=== PATIENT | female | born 1945 | race Caucasian/White ===

== ENCOUNTER 2018-05-23 03:55 | Emergency (ER) | payer MEDICARE ==
[2018-05-23] MEDS ORDERED: Ketorolac INJ* 30 MG/ML 1 ML VIAL IV PUSH ONE (04:04)
[2018-05-23] MEDS ORDERED: diPHENhydraMINE PO* 25 MG PO ONE (04:04)
[2018-05-23] MEDS ORDERED: Metoclopramide IV* 5 MG/ML 2 ML VIAL IV ONE (04:04)
--- OUTSIDE RECORDS SUMMARY | 2018-05-23 04:10 | XMS REPORT ---
:1945 External Reference #:[id number] Author Organization [facility] Address [address] [place] [address] Phone [phone] Care Team Providers Name Role Phone Sravanthi Oconnor M.D. 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 Primary Care Physician Unavailable Payers Type Date Identification Numbers Payment Provider Subscriber Commercial Effective: Policy Number: Medicare Blue Ppo Lauren Martinez Yvette 2016 [id number] Group Number: [id number] [address] [address] PayID: [id number] [place] [address] Problems Date Description Provider Status Onset: 04/26/2018 Cough Kenneth Flores M.D. Active Onset: 04/26/2018 Malaise and fatigue Kenneth Flores M.D. Active Onset: 11/16/2017 Impaired fasting glycaemia Sravanthi Oconnor M.D. Active Onset: 08/17/2017 Mixed urinary incontinence Sravanthi Oconnor M.D. Active Onset: 08/17/2017 Gastroesophageal reflux disease Sravanthi Oconnor M.D. Active Onset: 08/17/2017 Essential hypertension Sravanthi Oconnor M.D. Active Onset: 08/17/2017 Personal history of primary malignant Sravanthi Oconnor M.D. Active neoplasm of breast Family History Date Family Member(s) Problem(s) Comments Father due to Stomach () - brain Cancer cancer Onset: (age 88 Mother Stroke Years) Mother due to Stroke () Mother Hip Fracture First Son Hypertension First Son Seizure Second Son Diabetes Mellitus, II First Sister Lung Cancer First Sister Chronic Obstructive Pulmonary Disease (COPD) First Sister Deaf Second Sister Heart Disease Third Sister Heart Disease Social History Type Date Description Comments Marital Status Legal Status: 2017 Lives With Alone Diet Healthy, Well Balanced Cigarette Use Former Cigarette Smoker >50 years ago ETOH Use Occasional 1x week Smoking Patient is a former smoker Exercise Type/Frequency Exercises regularly Allergies, Adverse Reactions, Alerts Date Description Reaction Status Severity Comments 08/17/2017 NKDA active Medications Medication Date Status Form Strength Qnty SIG Indications Ordering Provider Azithromycin 04/26/ Active Tablets 250mg 6tabs take 2 Kenneth F. 2018 tablets Shallish, by mouth M.D. on day 1 then 1 tablet on days 2 through 5 Aspirin / Active Chewtabs 81mg 1 po qd Unknown Childrens 0000 Paroxetine HCL / Active Tablets 20mg 90tabs 1 by Sravanthi 0000 mouth [place], every day M.D. Nadolol / Active Tablets 20mg 1 by Unknown 0000 mouth every day Ipratropium / Active Solution 0.03% 1 spray Unknown [place] 0000 each nostril qd prn Omeprazole / Active Capsules 20mg [address] mouth every day Triamterene/Hyd / Active Tablets 37.5-25mg 1 by Unknown rochlorothiazid 0000 mouth e every day Amoxicillin/Cla 09/08/ Hx Tablets 875-125mg 30tabs 1 by J01.00 Sebastián grande 2017 - mouth Seda Potassium 11/16/ twice a MD 2017 Vital Signs Date Vital Result Comment 04/26/2018 BP Systolic 130 mmHg BP Diastolic 70 mmHg Heart Rate 78 /min Body Temperature 97.7 F Respiratory Rate 20 /min Weight 193.00 lb 11/16/2017 BP Systolic 120 mmHg BP Diastolic 74 mmHg Heart Rate 80 /min Body Temperature 98.1 F Respiratory Rate 18 /min Height 64.5 inches 5'4.50" Weight 194.00 lb BMI (Body Mass Index) 32.8 kg/m2 09/08/2017 BP Systolic 124 mmHg BP Diastolic 70 mmHg Heart Rate 60 /min Body Temperature 97.0 F Respiratory Rate 16 /min Height 64.5 inches 5'4.50" Weight 195.00 lb BMI (Body Mass Index) 33.0 kg/m2 08/17/2017 BP Systolic 140 mmHg BP Diastolic 70 mmHg Heart Rate 64 /min Body Temperature 98.4 F Respiratory Rate 16 /min Height 64.5 inches 5'4.50" Weight 192.00 lb BMI (Body Mass Index) 32.4 kg/m2 Results Test Date Test Result H/L Range Note FSH, Serum 11/02/2017 FSH 49.5 mIU/mL 1, 2 Laboratory test finding 11/02/2017 Luteinizing Hormone(LH), 19.4 mIU/mL 1, 3 S Estradiol <5.0 pg/mL 1, 4 Comprehensive Metabolic Prof 11/02/2017 Sodium 136 mEq/L 134-149 Potassium 3.7 mEq/L 3.6-5.5 Chloride 95 mEq/L 94-112 Carbon Dioxide 29 mEq/L 21-32 Glucose 137 mg/dL High 70-105 5 BUN 17 mg/dL 6-26 Creatinine 0.8 mg/dL 0.6-1.4 BUN/Creat Ratio 21.3 CALC 8.0-36.0 Calcium 9.2 mg/dL 8.6-10.2 Total Protein 6.7 g/dL 6.4-8.3 Albumin 4.4 g/dL 3.8-5.5 Globulin 2.3 g/dL 2.0-4.8 A/G Ratio 1.9 CALC 0.6-2.3 Alk. Phosphatase 75 U/L 30-110 Alt (SGPT) 32 U/L 7-35 Ast (Sgot) 23 U/L 5-34 Total Bilirubin 0.7 mg/dL 0.2-1.3 GFR Non- >60 ml/min/1.73m^ >=60 GFR >60 ml/min/1.73m^ >=60 Lipid Profile 11/02/2017 Cholesterol 204 mg/dL High 120-200 Triglycerides 124 mg/dL 30-200 HDL Cholesterol 46 mg/dL 30-85 LDL (Calculated) 133 CALC High 0-129 VLDL Cholesterol 25 mg/dL 0-50 HDL Risk Factor 4.4 CALC 0.0-4.4 Laboratory test finding 11/02/2017 Free T4 1.01 ng/dL 0.75-1.54 TSH 3.11 mIU/L 0.50-6.00 CBC Electronic Fma 11/02/2017 WBC 4.5 x10^3/UL 4.0-10.0 RBC 4.87 x10^6/UL 3.93-6.00 HGB 14.3 g/dL 12.0-17.0 HCT 41 % 35-50 MCV 84.8 fL 80.0-95.0 MCH 29.4 pg 25.6-32.2 MCHC 34.6 g/dL 32.2-36.0 RDW-CV 13.7 % 11.6-14.4 PLT 171 x10^3/UL 163-400 MPV 12.3 fL 9.4-12.4 Breann# 2.91 x10^3/UL 1.56-6.13 Lymph# 1.13 x10^3/UL Low 1.18-3.74 Cedar# 0.31 x10^3/UL 0.24-0.82 Eos # 0.1 x10^3/UL 0.0-0.5 Baso # 0.04 x10^3/UL 0.01-0.08 Breann% 64.4 % 34.0-70.0 Lymph % 25.0 % 20.0-52.0 Cedar% 6.9 % 5.0-12.0 Eos% 2.4 % 0.7-7.0 Baso% 0.9 % 0.1-1.2 1 1 sst 2 Adult Female: Follicular phase 3.5 - 12.5 Ovulation phase 4.7 - 21.5 Luteal phase 1.7 - 7.7 Postmenopausal 25.8 - 134.8 3 Adult Female: Follicular phase 2.4 - 12.6 Ovulation phase 14.0 - 95.6 Luteal phase 1.0 - 11.4 Postmenopausal 7.7 - 58.5 4 Adult Female: Follicular phase 12.5 - 166.0 Ovulation phase 85.8 - 498.0 Luteal phase 43.8 - 211.0 Postmenopausal <6.0 - 54.7 1st trimester 215.0 - >4300.0 Girls (1-10 years) 6.0 - 27.0 Andria ECLIA methodology 5 RESULTS VERIFIED BY REPEAT ANALYSIS Procedures Date CPT Code Description Status Comment 04/25/2017 Mammogram Completed 07/26/2013 Colonoscopy Completed [facility] Encounters Type Date Location Provider CPT E/M Dx Office Visit 11/16/2017 11:20a [facility] Sravanthi Oconnor M.D. 75751 I10 N95.1 Z85.3 K21.9 R73.01 Office Visit 09/08/2017 4:10p Main [place] Sebast[place]án [place] [address] J01.00 Office Visit 08/17/2017 2:20p [facility] Office Sravanthi Oconnor M.D. 56853 Z00.00 N95.1 Z85.3 I10 K21.9 H91.93 N39.46 Plan of Care Future Appointment(s):05/11/2018 9:20 am - Sravanthi Oconnor M.D. at [facility] Llyitc3604/26/2018 - Kenneth Flores M.D.R53.83 Other fatigueNew Labs:CBC Electronic-ALL Lab CompaniComp Metabolic-ALL Lab CompaniFree T4 (Fma/[facility]) TSH (Fma/[facility])Comments:Patient states she has had several weeks of unusual fatigue, denies chest pain on exercise, check lab work today and she will followup with Dr. Luna CoughComments:start azithromycin for sinusitis ,and bronchitis , await lab work patient would like to get her appointment for chest xray and mammogramAllNew Medication:Azithromycin 250 mg
--- OUTSIDE RECORDS SUMMARY | 2018-05-23 04:10 | XMS REPORT ---
:1945 External Reference #:[id number] Author Organization [facility] Address [address] [place] [address] Phone [phone] Care Team Providers Name Role Phone Sravanthi Oconnor M.D. 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 Primary Care Physician Unavailable Payers Type Date Identification Numbers Payment Provider Subscriber Commercial Effective: Policy Number: Medicare Blue Ppo Lauren Martinez Yvette 2016 [id number] Group Number: [id number] [address] [address] PayID: [id number] [place] [address] Problems Date Description Provider Status Onset: 08/17/2017 Personal history of primary Sravanthi Oconnor M.D. Active malignant neoplasm of breast Onset: 08/17/2017 Essential hypertension Sravanthi Oconnor M.D. Active Onset: 08/17/2017 Gastroesophageal reflux disease Sravanthi Oconnor M.D. Active Onset: 08/17/2017 Mixed urinary incontinence Sravanthi Oconnor M.D. Active Onset: 11/16/2017 Impaired fasting glycaemia Sravanthi Oconnor M.D. Active Onset: 04/26/2018 Malaise and fatigue Kenneth Flores M.D. Resolved Resolved: 05/04/2018 Onset: 04/26/2018 Cough Kenneth Flores M.D. Resolved Resolved: 05/04/2018 Family History Date Family Member(s) Problem(s) Comments [...] Form Strength Qnty SIG Indications Ordering Provider Aspirin / Active Chewtabs 81mg 1 po qd Unknown Childrens 0000 Paroxetine HCL / Active Tablets 20mg 90tabs 1 by Sravanthi 0000 mouth [place], every day M.D. Nadolol / Active Tablets 20mg 90tabs 1 by Sravanthi 0000 mouth [place], every day M.D. Ipratropium / Active Solution 0.03% 30ml 1 spray Sravanthi [place] 0000 each [place], nostril M.D. every day as needed Omeprazole / Active Capsules 20mg [address] mouth every day Triamterene/Hyd / Active Tablets 37.5-25mg 90tabs 1 by Sravanthi rochlorothiazid 0000 mouth [place], e every day M.D. Azithromycin 04/26/ Hx Tablets 250mg 6tabs take 2 Kenneth F. 2017 - tablets Shallish, 05/04/ by mouth M.D. 2017 on day 1 then 1 tablet on days 2 through 5 Amoxicillin/Cla 09/08/ Hx Tablets 875-125mg 30tabs 1 by J01.00 Sebastián grande 2017 - mouth Seda Potassium 11/16/ twice a MD 2017 Vital Signs Date Vital Result Comment 05/04/2018 BP Systolic 128 mmHg BP Diastolic 70 mmHg Heart Rate 70 /min Body Temperature 97.2 F Respiratory Rate 20 /min Weight 192.00 lb 04/26/2018 BP Systolic 130 mmHg BP Diastolic [...] Test Date Test Result H/L Range Note Comprehensive Metabolic Prof 04/26/2018 Sodium 138 mEq/L 134-149 Potassium 3.7 mEq/L 3.6-5.5 Chloride 96 mEq/L 94-112 Carbon Dioxide 31 mEq/L 21-32 Glucose 71 mg/dL 70-105 BUN 13 mg/dL 6-26 Creatinine 0.9 mg/dL 0.6-1.4 BUN/Creat Ratio 14.4 CALC 8.0-36.0 Calcium 10.0 mg/dL 8.6-10.2 Total Protein 6.9 g/dL 6.4-8.3 Albumin 4.7 g/dL 3.8-5.5 Globulin 2.2 g/dL 2.0-4.8 A/G Ratio 2.1 CALC 0.6-2.3 Alk. Phosphatase 79 U/L 30-110 Alt (SGPT) 31 U/L 7-35 Ast (Sgot) 26 U/L 5-34 Total Bilirubin 0.8 mg/dL 0.2-1.3 GFR Non- >60 ml/min/1.73m^ >=60 GFR >60 ml/min/1.73m^ >=60 Laboratory test finding 04/26/2018 Free T4 1.44 ng/dL 0.75-1.54 TSH 3.01 mIU/L 0.50-6.00 CBC Electronic Fma 04/26/2018 WBC 5.9 x10^3/UL 4.0-10.0 RBC 4.95 x10^6/UL 3.93-6.00 HGB 14.4 g/dL 12.0-17.0 HCT 43 % 35-50 MCV 86.3 fL 80.0-95.0 MCH 29.1 pg 25.6-32.2 MCHC 33.7 g/dL 32.2-36.0 RDW-CV 13.9 % 11.6-14.4 PLT 236 x10^3/UL 163-400 MPV 12.9 fL High 9.4-12.4 Breann# 3.60 x10^3/UL 1.56-6.13 Lymph# 1.24 x10^3/UL 1.18-3.74 [place]# 0.63 x10^3/UL 0.24-0.82 Eos # 0.3 x10^3/UL 0.0-0.5 Baso # 0.05 x10^3/UL 0.01-0.08 Breann% 61.3 % 34.0-70.0 Lymph % 21.2 % 20.0-52.0 [place]% 10.8 % 5.0-12.0 Eos% 5.1 % 0.7-7.0 Baso% 0.9 % 0.1-1.2 FSH, Serum 11/02/2017 FSH 49.5 mIU/mL 1, 2 Laboratory test finding 11/02/2017 Luteinizing Hormone(LH), S 19.4 mIU/mL 1, 3 Estradiol <5.0 pg/mL 1, 4 Comprehensive Metabolic [...] x10^3/UL 1.56-6.13 Lymph# 1.13 x10^3/UL Low 1.18-3.74 [place]# 0.31 x10^3/UL 0.24-0.82 Eos # 0.1 x10^3/UL 0.0-0.5 Baso # 0.04 x10^3/UL 0.01-0.08 Breann% 64.4 % 34.0-70.0 Lymph % 25.0 % 20.0-52.0 [place]% 6.9 % 5.0-12.0 Eos% 2.4 % 0.7-7.0 [...] Location Provider CPT E/M Dx Office Visit 04/26/2018 9:20a Main Office Kenneth Flores M.D. 58299 R53.83 R05 Office Visit 11/16/2017 11:20a [facility] Sravanthi Oconnor M.D. 83455 I10 N95.1 Z85.3 K21.9 R73.01 Office Visit 09/08/2017 4:10p Main [place] Sebast[place]án [place] [address] J01.00 Office Visit 08/17/2017 2:20p [facility] Sravanthi Ocononr M.D. 07963 Z00.00 N95.1 Z85.3 I10 K21.9 H91.93 N39.46 Plan of Care Future Appointment(s):08/23/2018 1:00 pm - Sravanthi Oconnor M.D. at [facility] Nhjcjo2305/04/2018 - Sravanthi Oconnor M.D.I10 Essential (primary) hypertensionNew Labs:CCS-Comp And Lipid (Fma)Comments:The patient will continue to monitor blood pressure and let me know the blood pressure results if there are readings persistently above 140/80. Goal blood pressure is less than 140/80. Recommend low salt/cardiac diet and routine exercise.Follow up:nqdtdjtkA58.1 Menopausal and female climacteric rqmedtW60.3 Personal history of malignant neoplasm of breastComments:gets routine mammogram due April has [id number] Impaired fasting glucoseNew Labs:CBC Electronic-ALL Lab CompaniCCS-Comp And Lipid (Fma)Hemoglobin [id number]:Counseled on heart healthy diet and exercise; limiting carbs and portion control, at least 30 minutes of physical activity daily; consider Mediterranean diet as a guide for healthy eating ; A1c> 6.5is diagnostic of diabetesAllComments:~B_~U_Medication Management~b_~u_ Patient Understands medications she's taking? Yes No Are there Barriers to Adherence? Yes No Has the patient been asked about herbal supplements and therapies, and OTC meds? Yes No
--- NOTE | 2018-05-23 04:26 | ED ---
Headache - HPI Summary HPI Summary: A 72 y/o F presents to ED with c/o R temporal migraine onset 2129 yesterday. Migraine is painful and throbbing. Pt has been having sinus issues for 6 weeks. She was given ABX by Dr. Oconnor, PCP, which alleviated her sx at that time. Her sx have returned. Associated: maxillary sinus discomfort for 4-5 days, teeth pain, L eye flashes described as "zig zags" and colorful aura, mild neck pain, mildly unsteady gait. PMHx: migraines. Flu shot and PNA shot two days ago. Allergies discussed. - History Of Current Complaint Chief Complaint: EDHeadache Stated Complaint: GENERAL Time Seen by Provider: 05/23/18 04:24 Hx Obtained From: Patient Onset/Duration: Started hours ago, Still Present Initially Headache Was: Moderate Currently Pain Is: Current Pain Scale(0-10)= - 5/10, Moderate Timing: Constant Character: Migraine Location of Headache: Temporal - Right Associated Signs And Symptoms: Sinus Pressure - sinus discomfort, Neck Pain - mild, Visual Changes, Other (Noted In Comments) - pos: teeth pain, mildly unsteady gait - Allergies/Home Medications Allergies/Adverse Reactions: Allergies Allergy/AdvReac Type Severity Reaction Status Date / Time Penicillins Allergy Hives Verified 05/23/18 04:25 PMH/Surg Hx/FS Hx/Imm Hx Previously Healthy: No Endocrine/Hematology History: Denies: Hx Diabetes Cardiovascular History: Reports: Hx Hypertension - CONTROLLED Denies: Hx Congestive Heart Failure GI History: Comment Only: Other GI Disorders - TUMMY TUCK FOR BREAST RECONSTRUCTION History: Denies: Hx Renal Disease - Cancer History Cancer Type, Location and Year: RT BREAST CA Hx Chemotherapy: No Hx Radiation Therapy: No - Surgical History Surgery Procedure, Year, and Place: RT SIDED BREAST SURGERY/TUMMY TUCK Infectious Disease History: No Infectious Disease History: Denies: Traveled Outside the [place] in Last 30 Days - Family History Known Family History: Negative: Other - neg Breast CA - Social History Occupation: Retired Lives: Alone Alcohol Use: Rare Substance Use Type: Reports: None Smoking Status (MU): Never Smoked Tobacco Review of Systems Negative: Fever Positive: Other - pos: flashes "zig zags" and colorful aura Positive: Dental Pain, Other - pos: maxillary sinus discomfort Positive: Other - pos: mild neck pain Neurological: Other - pos: mildly unsteady gait Positive: Headache All Other Systems Reviewed And Are Negative: Yes Physical Exam - Summary Physical Exam Summary: Appearance: Well appearing, no pain distress Skin: warm, dry, reflects adequate perfusion Head/face: normal Eyes: EOMI, ARISTEO ENT: mucous membranes moist, maxillary sinus discomfort Neck: supple, non-tender Respiratory: CTA, breath sounds present Cardiovascular: RRR, pulses symmetrical Abdomen: non-tender, soft Bowel Sounds: present Musculoskeletal: normal, strength/ROM intact Neuro: normal, sensory motor intact, A&Ox3, cranial nerves are normal Triage Information Reviewed: Yes Vital Signs On Initial Exam: Initial Vitals Temp Pulse Resp BP Pulse Ox 98.7 F 84 18 158/80 96 05/23/18 03:57 05/23/18 03:57 05/23/18 03:57 05/23/18 03:57 05/23/18 03:57 Vital Signs Reviewed: Yes Diagnostics - Vital Signs Vital Signs Temp Pulse Resp BP Pulse Ox 05/23/18 03:57 98.7 F 84 18 158/80 96 - Laboratory Lab Statement: Any lab studies that have been ordered have been reviewed, and results considered in the medical decision making process. - CT Sinus CT CT Interpretation Completed By: Radiologist Summary of CT Findings: IMPRESSION: 1. No evidence of acute facial fracture. 2. 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 ED provider has reviewed this report. Re-Evaluation - Re-Evaluation 1 Re-Evaluation Time: 05:31 Comment: Discussing lab and CT results with pt. Headache has resolved. Headache Course/Dx - Course Course Of Treatment: Patient with headache syndrome that is untreated with medication. She had complained of sinus discomfort however CT of the sinuses is normal. She had no fever or head injury. Treated symptomatically here with total relief. Discharged to follow-up with her primary care physician. - Diagnoses Differential Diagnosis/HQI/PQRI: Migraine, Sinus Headache, Tension Headache, Viral Syndrome Provider Diagnoses: Migraine headache Discharge - Sign-Out/Discharge Documenting (check all that apply): Patient Departure - Discharge Plan Condition: Improved Disposition: HOME Prescriptions: Promethazine TAB* [Phenergan Tab*] 25 mg PO Q6H PRN #20 tab PRN Reason: headache/nausea Patient Education Materials: Migraine Headache (ED) Referrals: Sravanthi Oconnor MD [Primary Care Provider] - Additional Instructions: Use a decongestant such as Mucinex or Mucinex D if you have drainage. Drink plenty of fluids. Ibuprofen, Benadryl can help the prescribed medication if headache is more serious. Also stay well-hydrated and some caffeine may help as well. Call your doctor first thing this morning to schedule prompt follow- up. - Billing Disposition and Condition Condition: IMPROVED Disposition: Home - Attestation Statements Document Initiated by Scribe: Yes Documenting Scribe: Dony Vera Provider For Whom Mary is Documenting (Include Credential): Dr. Al Gómez MD Scribe Attestation: I, Dony Vera scribed for Dr. Al Gómez MD on 05/23/18 at 0611. Scribe Documentation Reviewed: Yes Provider Attestation: The documentation as recorded by the Dony montana accurately reflects the service I personally performed and the decisions made by me, Dr. Al Gómez MD
--- NOTE | 2018-05-23 05:38 | RAD ---
EXAM: CT Maxillofacial Without Intravenous Contrast, Sinus EXAM DATE/TIME: 05/23/2018 4:45 AM CLINICAL HISTORY: 72 years old, female; Pain; Headache; Additional info: Sinus pain, headache TECHNIQUE: CT Maxillofacial without intravenous contrast. Focus on the sinuses. All CT scans at this facility use at least one of these dose optimization techniques: automated exposure control; mA and/or kV adjustment per patient size (includes targeted exams where dose is matched to clinical indication); or iterative reconstruction. Coronal and sagittal reformatted images were created and reviewed. COMPARISON: No relevant prior studies available. FINDINGS: Sinuses: Unremarkable. No air-fluid levels. 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 Soft tissues: Unremarkable. IMPRESSION: 1. No evidence of acute facial fracture. 2. 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 To contact [facility] with a general question: [facility] - [phone] For direct physician to physician contact: Physician Hotline - [phone] [facility] ([facility] Facility ID #[id number])
[2018-05-23 05:51] VITALS: BP 154/72
== END 2018-05-23 05:50 | disposition home or self-care (01) ==
LOC: ED 03:55
DX: G43.909 Migraine, unspecified, not intractable, without status migrainosus (principal); I10 Essential (primary) hypertension; Z85.3 Personal history of malignant neoplasm of breast
CPT/HCPCS: 70486; 96374; 96375; 99282; A9270-GY; J1885; J2765

== ENCOUNTER 2018-09-27 15:05 | Observation (INO) | payer MEDICARE ==
[2018-09-27] MEDS ORDERED: NS 0.9% 1000 ML** 1,000 ML IV ONE (15:42)
--- NOTE | 2018-09-27 15:46 | ED ---
Neurological HPI - HPI Summary HPI Summary: This pt is a 73 y/o female presenting to [facility] c/o headache, slurred speech, speech aphasia today. Son, Raymon, reports today at around 13:50 his spoke with the pt on the phone and pt was having difficulty remembering words and only coming up with a few words at a time. Additionally son states pt's speech was a little slurred. Son left work and arrived at pt's place and states pt seemed ok then but not normal. Son denies pt has slurred speech right now. Pt denies weakness, numbness, tingling. Pt reports she has had high blood pressure over 200 systolic for the past 3 weeks intermittently. Pt was at [facility] on 09/13 for migraine headache and 09/24 for elevated blood pressure. She notes she is on Nadolol and hydrochlorothiazide. Pt states she missed her dose of 25 mg hydrochlorothiazide at 15:00 today. Hydrochlorothiazide has recently been increased. PMHx: HTN, migraine headache, IBS. - History of Current Complaint Chief Complaint: EDHeadache Stated Complaint: PER PT DOCTOR SAID TO REPORT HERE, POSSIBLE STROKE Time Seen by Provider: 09/27/18 15:33 Hx Obtained From: Patient, Family/[employer] - SonRaymon Onset/Duration: Started hours ago - at 13:50, Resolved Timing: Sudden Onset Onset Severity: Moderate Pain Intensity: 5 Pain Scale Used: 0-10 Numeric Character: Impaired Speech, Other: - headache, slurred speech Aggravating: Nothing Alleviating: Nothing Associated Signs and Symptoms: Positive: Headache, Impaired Speech. Negative: Pain, Fever, Chest Pain, Shortness of Breath - Allergy/Home Medications Allergies/Adverse Reactions: Allergies Allergy/AdvReac Type Severity Reaction Status Date / Time peanut Allergy Swelling Verified 09/13/18 17:58 Of Face,Lips,& Throat Penicillins Allergy Hives Verified 05/23/18 04:25 Home Medications: Home Medications Aspirin 1 tab PO DAILY 09/27/18 [History Confirmed 09/27/18] Cholecalciferol TAB* [Vitamin D TAB*] 2,000 units PO DAILY 09/27/18 [History Confirmed 09/27/18] Hydrochlorothiazide TAB* [Hydrodiuril TAB*] 25 mg PO DAILY 09/27/18 [History Confirmed 09/27/18] Omeprazole CAP (NF) [Prilosec CAP* 20 MG] 20 mg PO DAILY 09/27/18 [History Confirmed 09/27/18] Oxybutynin XL TAB* [Ditropan XL TAB*] 5 mg PO DAILY 09/27/18 [History Confirmed 09/27/18] PARoxetine HCL TAB* [Paxil TAB*] 20 mg PO DAILY 09/27/18 [History Confirmed 12/11] PMH/Surg Hx/FS Hx/Imm Hx Endocrine/Hematology History: Denies: Hx Diabetes Cardiovascular History: Reports: Hx Hypertension - CONTROLLED Denies: Hx Congestive Heart Failure GI History: Comment Only: Other GI Disorders - TUMMY TUCK FOR BREAST RECONSTRUCTION History: Denies: Hx Renal Disease Sensory History: Denies: Hx Eye Prosthesis, Hx Legally Blind, Hx Deafness Opthamlomology History: Denies: Hx Eye Prosthesis, Hx Legally Blind Neurological History: Reports: Hx Migraine Denies: Hx Dementia Psychiatric History: Denies: Hx Autism - Cancer History Cancer Type, Location and Year: RT BREAST CA Hx Chemotherapy: No Hx Radiation Therapy: No - Surgical History Surgery Procedure, Year, and Place: RT SIDED BREAST SURGERY/TUMMY TUCK - Immunization History Date of Tetanus Vaccine: utd Date of Influenza Vaccine: fall 2017 Infectious Disease History: No Infectious Disease History: Denies: Traveled Outside the [place] in Last 30 Days - Family History Known Family History: Negative: Other - neg Breast CA - Social History Alcohol Use: Occasionally Substance Use Type: Reports: None Smoking Status (MU): Former Smoker Review of Systems Negative: Fever, Chills Cardiovascular: Other - POS: elevated blood pressure Negative: Chest Pain Negative: Shortness Of Breath Neurological: Other - POS: slurred speech, aphasia Positive: Headache. Negative: Weakness, Paresthesia, Numbness All Other Systems Reviewed And Are Negative: Yes Physical Exam - Summary Physical Exam Summary: VITAL SIGNS: Reviewed. GENERAL: Patient is a well-developed and nourished female who is lying comfortable in the stretcher. Patient is not in any acute respiratory distress. HEAD AND FACE: Normocephalic EYES: PERRLA, EOMI x 2. EARS: Hearing grossly intact. MOUTH: Oropharynx within normal limits. NECK: Supple, trachea is midline, no adenopathy, no JVD, no carotid bruit. CHEST: Symmetric, no tenderness at palpation LUNGS: Clear to auscultation bilaterally. No wheezing or crackles. CVS: Regular rate and rhythm, S1 and S2 present, no murmurs or gallops appreciated. ABDOMEN: Soft, non-tender. Bowel sounds are normal. No abdominal abnormal pulsations. EXTREMITIES: Full ROM in all major joints, no edema, no cyanosis or clubbing. NEURO: Alert and oriented x 3. No acute neurological deficits. Speech is normal and follows commands. SKIN: Dry and warm GCS: 15 Triage Information Reviewed: Yes Vital Signs On Initial Exam: Initial Vitals Temp Pulse Resp BP Pulse Ox 97.7 F 62 15 178/84 98 09/27/18 15:17 09/27/18 15:17 09/27/18 15:17 09/27/18 15:17 09/27/18 15:17 Vital Signs Reviewed: Yes Diagnostics - Vital Signs Vital Signs Temp Pulse Resp BP Pulse Ox 09/27/18 15:17 97.7 F 62 15 178/84 98 - Laboratory Result Diagrams: 09/27/18 16:00 09/27/18 15:59 Lab Statement: Any lab studies that have been ordered have been reviewed, and results considered in the medical decision making process. - Radiology Chest XR Radiology Interpretation Completed By: Radiologist Summary of Radiographic Findings: IMPRESSION: 1. The lungs are clear. 2. Mild widening of the mediastinum likely due to portable technique although nonspecific. When the patient is clinically able recommend PA and lateral chest films. Dr. Mcfadden has reviewed this report. - CT Brain CT CT Interpretation Completed By: Radiologist Summary of CT Findings: IMPRESSION: 1. No evidence for gross acute infarct, mass effect or hemorrhage. 2. Findings suggestive of mild chronic small vessel ischemic changes. Dr. Mcfadden has reviewed this report. - EKG 16:04 Cardiac Rate: NL - at 65 bpm EKG Rhythm: Sinus Rhythm EKG Comparison: No Significant Change - Similar to prior EKG on 09/24/18. Summary of EKG Findings: No ST elevations. 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: Both Correctly Best Gaze (Only Horizontal Eye Movement): Normal Visual Field Testing: No Visual Loss Facial Paresis-Pt to Smile & Close Eyes or Grimace Symmetry: Normal/Symmetrical Motor Function - Right Arm: No Drift-Holds 10 Seconds Motor Function - Left Arm: No Drift-Holds 10 Seconds Motor Function - Right Leg: No Drift-Holds 10 Seconds Motor Function - Left Leg: No Drift-Holds 10 Seconds Limb Ataxia-Must be out of Proportion to Weakness Present: Absent Sensory (Use Pinprick to Test Arms/Legs/Trunk/Face): Normal Best Language (Describe Picture, Name Items): No Aphasia Dysarthria (Read Several Words): Normal Extinction and Inattention: No Abnormality Total Score: 0 Re-Evaluation - Re-Evaluation First Eval Re-Evaluation Time: 15:53 Comment: Dr. Lares, neurologist, at bedside. Course/Dx - Course Course Of Treatment: Code Adam at 15:40. Brain CT ordered at 15:42. Patient to CT at 15:43. Patient returned from CT at 15:52. Dr. Lares, neurologist, at bedside at 15:53. Dr. Lares reports pt is not a candidate for TPA because NIH is 0. At 16:03 Dr Palma, radiologist, reports negative brain CT. At 16:10 Dr. Lares, neurologist, recommends admission for the pt. Assessment/Plan: This patient is a 73-year-old female who presents to the emergency department with a chief complaint of having an episode of slurred speech, speech aphasia, confusion around 1:50 PM today. The patient also was having a headache and increased blood pressure. NIH score is equal to 0. Head CT impression: Negative for an acute pathology. After assessment from Dr. Lares , from neurology, he recommends no TPA since the patients NIH score right now is equal to 0. However, he recommends for the patient to be admitted to the hospitalist for further workup of TIA versus CVA, and hypertensive encephalopathy. In the ED course the patient was given hydralazine for the increased blood pressure. I discussed my physical exam and findings with Dr. Wilson, from the hospitalist services, who accepted patient for admission. - Diagnoses Provider Diagnoses: Hypertensive encephalopathy, TIA (transient ischemic attack), Headache During the Visit The Following Alert/Code Occurred: Code Adam - at 15:40 - Physician Notifications Discussed Care Of Patient With: Justo Palma Time Discussed With Above Provider: 16:03 Instructed by Provider To: Other - Dr. Palma, radiologist, reports negative brain CT. [17:26] Discussed the case with Dr. Wilson, hospitalist, who accepted the pt for admission. - Critical Care Time Critical Care Time: 75-104 min Discharge - Sign-Out/Discharge Documenting (check all that apply): Patient Departure - Admit to [facility] Patient Received Moderate/Deep Sedation with Procedure: No - Discharge Plan Condition: Stable Disposition: ADMITTED TO [facility] - Billing Disposition and Condition Condition: STABLE Disposition: Admitted to [facility] - Attestation Statements Document Initiated by Scribe: Yes Documenting Scribe: Esperanza Lindo Provider For Whom Scribe is Documenting (Include Credential): Ryan Mcfadden MD Scribe Attestation: Esperanza Jauregui, scribed for Ryan Mcfadden MD on 09/28/18 at 1014. Scribe Documentation Reviewed: Yes Provider Attestation: The documentation as recorded by the Esperanza montana accurately reflects the service I personally performed and the decisions made by mi, Ryan Mcfadden MD Status of Scribe Document: Viewed
[2018-09-27 16:06] LABS: Hematocrit 42 % (35-47); Hemoglobin 14.6 g/dl (12.0-16.0); Mean Corpuscular HGB Conc 35 g/dl (31-36); Mean Corpuscular Hemoglobin 30 pg (27-31); Mean Corpuscular Volume 85 fL (80-97); Mean Platelet Volume 10.3 fL (7.4-10.4); Platelet Count 192 10^3/ul (150-450); Red Blood Count 4.94 10^6/ul (4.00-5.40); Red Cell Distribution Width 14 % (10.5-15); White Blood Count 6.9 10^3/ul (3.5-10.8)
[2018-09-27 16:14] LABS: Activated Partial Thrombo Time 30.3 seconds (26.0-36.3); INR 0.92 (0.77-1.02)
[2018-09-27 16:24] LABS: Albumin 4.5 g/dL (3.2-5.2); Albumin/Globulin Ratio 1.6 (1-3); BUN/Creatinine Ratio 21.5 (8-20); Calcium 9.3 mg/dL (8.6-10.3); EGFR African American 71.3 (>60); EGFR Non-African American 58.9 (>60); Globulin 2.8 g/dL (2-4); HDL Cholesterol 42.4 mg/dL; Total Bilirubin 0.7 mg/dL (0.2-1.0); Total Protein 7.3 g/dL (6.4-8.9)
[2018-09-27 16:24] LABS: Urine Appearance Clear; Urine Bilirubin Negative (Negative); Urine Blood Negative (Negative); Urine Color Straw; Urine Glucose Negative (Negative); Urine Ketones Negative (Negative); Urine Nitrite Negative (Negative); Urine Protein Negative (Negative); Urine Specific Gravity 1.005 (1.010-1.030); Urine Urobilinogen Negative (Negative)
[2018-09-27 16:28] LABS: ABS Basophils 0 10^3/ul (0-0.2); ABS Eosinophils 0.1 10^3/ul (0-0.6); ABS Lymphocytes 1.3 10^3/ul (1.0-4.8); ABS Monocytes 0.6 10^3/ul (0-0.8); ABS Neutrophils 4.8 10^3/ul (1.5-7.7); ABS Nucleated RBC 0 10^3/ul; Eosinophil % 2.1 %; Lymphocyte % 18.8 %; Nucleated Red Blood Cells % 0.1
[2018-09-27] MEDS ORDERED: Potassium Chlor TAB* 20 MEQ TAB.ER PO ONE (17:02)
[2018-09-27] MEDS ORDERED: hydrALAZINE IV* 20 MG/ML VIAL IV SLOW PU ONE (17:02)
[2018-09-27 17:07] LABS: TSH (Thyroid Stimulating Horm) 3.41 mcIU/mL (0.34-5.60)
[2018-09-27] MEDS ORDERED: Ondansetron INJ* 2 MG/ML VIAL IV PRN (18:18)
[2018-09-27] MEDS ORDERED: hydrALAZINE IV* 20 MG/ML VIAL IV SLOW PU PRN (19:01)
[2018-09-27] MEDS ORDERED: amLODIPine TAB* 5 MG PO ONE (19:02)
[2018-09-27] MEDS: Acetaminophen TAB* 325 MG PO PRN (19:08)
[2018-09-27] MEDS: Heparin VIAL(*) 5000 UNITS/ML VIAL (FIVE THOUSAND) SUBCUT SCH (21:07)
--- NOTE | 2018-09-27 21:16 | HP ---
CC: Dr. Sravanthi Oconnor.* ADMISSION HISTORY AND PHYSICAL: DATE OF ADMISSION: 09/27/18 PRIMARY CARE PROVIDER: Dr. Sravanthi Oconnor. HEALTHCARE PROXY: Her son. CODE STATUS: Full. SOURCE OF INFORMATION: History obtained from interview with the patient and her son. RELIABILITY: Good. CHIEF COMPLAINT: Headache, slurred speech, and aphasia. HISTORY OF PRESENT ILLNESS: This is a 73-year-old female with past medical history of migraines with aura as well as hypertension. She has been to the hospital several times in the last several weeks, first time 09/13/18 with migraines, also found to have blood pressure greater than 200. Discharge followup with Dr. Oconnor, which she did the next day. Started on hydrochlorothiazide, however, returned on 09/24/18 with blood pressure greater than 220, which she checked at home. At the direction of her primary care provider, again was seen in the emergency room, at which time her hydrochlorothiazide dose was increased to 50 mg daily and she was discharged home. Since that time, she had not been feeling 100% with a dull headache daily and not a lot of "inhibition." However, today on the day of presentation , she woke up early, felt well, cleaned the house until her "head felt a little weird." She felt like she was developing a migraine. She had auras with zigzag lines; however, this was not as bad as the worst episodes of migraines with aura. She took an aspirin and went to sit down. Her aura improved, however, at this time she mistakenly sent a group message telling her friend that she thought she might need some help. This message went to a number of family members as well, which she did not intend at first. Her [id number]-vi-zik called the patient around 1:50 p.m. and on the phone the patient was having difficulty finding words with some intermittent slurred speech. The patient said she could not think straight and additionally she tried to sit down and perform a crossword puzzle, but could not write the letters correctly. The entire episode lasted about 15 minutes. The patient's son presented to her home at which time he reported she did not quite seem herself, but was not quite abnormal. She presented to the emergency room where michael fine was called. She had a presenting NIH stroke scale of 0. She continues to have headaches that she noted was dissimilar to her usual migraines and it was frontal and burning, the last one was much more severe and right-sided and throbbing. Other than aforementioned events leading up to today, she has had no other recent or intercurrent illnesses including fevers, chills, night sweats , cough, shortness of breath, nausea, vomiting, lightheadedness, loss of consciousness, near loss of consciousness, changes in her medications other than those described above, sick contacts, URI or symptoms, bleeding, or travel. PAST MEDICAL HISTORY: Includes essential hypertension; IBS in remission; migraines with aura; history of breast cancer, status post modified radical mastectomy in 1966 on the right, breast reduction in 1986. MEDICATIONS: Medication list reviewed: 1. Aspirin 1 tab daily. 2. Cholecalciferol 2000 units daily. 3. Paxil 20 mg daily. 4. Omeprazole 20 mg daily. 5. Nadolol 20 mg daily. 6. Oxybutynin XL 5 mg daily. 7. Hydrochlorothiazide 25 mg daily, however, indicated the ER recently increased it to 50 mg daily. ALLERGIES: PEANUTS and PENICILLIN. FAMILY HISTORY: CVA in her mother. SOCIAL HISTORY: Remote tobacco greater than 30 years, alcohol 1 to 3 drinks of wine per week. REVIEW OF SYSTEMS: As per HPI. PHYSICAL EXAMINATION GENERAL: Sitting up in bed, interactive, pleasant, in no apparent distress. VITAL SIGNS: In the emergency room, 192/84, heart rate is 67, respiratory rate is 17, 97% on room air, T-max is 97.7. HEENT: Oropharynx is clear. She has moist mucous membranes. Sclerae are anicteric. NECK: She has no supraclavicular or cervical lymphadenopathy. LUNGS: Clear to auscultation. HEART: She has a regular rate and rhythm. No murmurs, rubs, or gallops. ABDOMEN: Soft, nontender, nondistended. EXTREMITIES: Warm and well perfused without clubbing, cyanosis, or edema. NEURO: She is alert and oriented x3. Cranial nerves II through XII are intact. She has no pronator drift. She has intact [id number]. Visual caro are intact to confrontation. She has 5/5 strength throughout. Gait not assessed. DIAGNOSTIC STUDIES/LAB DATA: Pertinent labs reviewed: Sodium is 131, potassium is 3.0 for which she has already received potassium in the emergency room, lactic acid 1.0. Troponin I of 0.00. TSH is 3.4. Urine is bland. Data reviewed: CT head, no evidence for gross acute infarct, mass effect or hemorrhage. Findings are suggestive of myoclonic small vessel ischemic changes. EKG is normal sinus rhythm, left axis, normal R-wave progression, no ST or T- wave changes. Chest x-ray: Lungs are clear, mild widening of the mediastinum likely due to portable technique, although nonspecific. ASSESSMENT AND PLAN: This is a 73-year-old female with a past medical history of migraine, essential hypertension, recently out of control, presenting to the hospital with 15 minutes of transient neurological symptoms including word finding difficulties and aphasia. 1. Transient neurological deficits. Differential includes cerebrovascular accident, transient ischemic attack, migraine, complex migraine, hypertensive emergency. Received hydralazine in the emergency room with good response. We will continue hydrochlorothiazide, add amlodipine 5 mg p.o. once now, continue p.r.n. hydralazine as needed. MRI/MRA head and neck has been performed as well as carotid Dopplers. While I think embolic phenomenon is less likely in this circumstance, I will request a transthoracic echocardiogram with bubble, place the patient on telemetry to monitor for any evidence of atrial fibrillation. Continue neuro checks every 4 hours, check fasting lipids in the morning, add hemoglobin A1c on to the ED labs, and start aspirin 81 mg daily. Neurology has consulted on this patient in the emergency room, we will follow with their recommendations as well. 2. Hypertensive urgency - as noted above, maybe hypertensive emergency has contributed to her altered mental status/disorientation and aphasia. Hydralazine in the emergency room worked well. P.o. amlodipine now with p.r.n. hydralazine overnight as well, adjusting medications prior to discharge for better continued control. Also should be continued on nadolol in addition to hydrochlorothiazide. 3. Irritable bowel syndrome. On no medications. 4. Mood disorder, unclear anxiety versus depression. Continue Paxil. 5. Urinary incontinence. Continue oxybutynin. 6. DVT prophylaxis is heparin subcu. TIME SPENT: Greater than 60 minutes was spent in admission of this patient, with greater than half spent [id number] with the patient and her son. [id number]/[facility] #: [id number] [facility] COMM[facility] HOSPITALSurjit
--- NOTE | 2018-09-28 00:05 | CONS ---
NEUROLOGY CONSULTATION NOTE: DATE OF CONSULT: 09/27/18 CONSULTING PROVIDER: Dr. Mcfadden. REASON FOR CONSULT: Transient word-finding difficulty. CHIEF COMPLAINT: Zigzag lines through both eyes that resolved. HISTORY OF PRESENT ILLNESS: Ms. Lauren Crawford is a 73-year-old right-handed female with history of hypertension and migraine headaches, who presented to the ED due to an episode of word-finding difficulty associated with headache and zigzag obscuration of the vision. The patient stated that on 09/13/18, she developed migraine headaches. She came to the ED for further evaluation and was given a migraine cocktail and started on blood pressure medication. The regimen worked for about 2 weeks, but then on 09/24/18, she came back to the ED for hypertensive emergency. Her systolic blood pressure was as high as 220 mmHg. The patient was started on hydrochlorothiazide by her PCP and that was increased last Wednesday in the ED to 25 mg twice daily. Today, the patient was in normal state of health at around 12:30. At 13:30, she was talking to her [id number] when suddenly she was having trouble finding words. This lasted for about 5 minutes. She was unable to say the word zigzag or describe her headache. Following the symptoms, she developed visual obscuration in both eyes, that lasted for approximately 10 minutes. Following that she developed mild bifrontal headache that is described as dull pain, nonradiating, 2/10 in severity, and associated with photophobia and nausea. The patient takes Benadryl and Excedrin for her migraine headaches, which seem to have helped, but Benadryl causes her to be significantly drowsy. PAST MEDICAL HISTORY: Depression, hypertension, inner ear dysfunction, GERD. No history of stroke or seizures. MEDICATIONS: 1. Nadolol 20 mg p.o. daily. 2. Paroxetine 20 mg p.o. daily. 3. Omeprazole 20 mg p.o. daily. 4. Oxybutynin XL 5 mg p.o. daily. 5. Hydrochlorothiazide 25 mg p.o. daily. ALLERGIES: To peanuts and PENICILLIN. FAMILY HISTORY: No reported history of stroke or seizures. SOCIAL HISTORY: The patient lives with her son. She denied any tobacco or alcohol use. REVIEW OF SYSTEMS: A 14-point review of systems was obtained and otherwise negative except for what is mentioned in the HPI. PHYSICAL EXAMINATION: Vitals: Temperature 97.7, pulse of 66, oxygen saturation of 98, respiratory rate of 24, and blood pressure of 207/88. General : A well-nourished, well-developed female in no acute distress. She appears younger than stated age. Head: Normocephalic, atraumatic without any obvious abnormality. Eyes: Conjunctivae/corneas are clear. Neck: Supple and symmetrical, with no carotid bruits. Lungs: Clear to auscultation bilaterally. Cardiovascular: Regular rate and rhythm with normal S1 and S2. Extremities: Normal range of motion with no cyanosis. Skin: No skin lesions or lacerations. Psych: Affect is broad and normal mood. She is easy to establish rapport. Neurologic: Mental Status: Awake, alert, and oriented to person, place, time and general circumstances. She has a slightly slowed speech , but able to comprehend without any difficulties. Cranial Nerves: Normal confrontation testing bilaterally. Pupils are midrange and reactive to light. Normal consensual response. Extraocular muscles are intact. Sensation is intact in the forehead, cheeks, and jaw region bilaterally. There is no facial droop. Face is symmetric bilaterally. Able to hear throughout the history process. Symmetrical palate elevation. There is normal strength against shoulder shrug. Tongue is symmetrical and midline with no atrophy or fasciculation. Motor Examination: No abnormal movement or pronator drift. Normal bulk and tone throughout. She has 5/5 strength in the upper and lower extremities bilaterally. Reflexes: Right/left brachioradialis 1/1, biceps 1/1 , triceps 1/1, patella 1/1, ankles 1/1. Plantar flexor/flexor. Sensation is intact to light touch throughout. Normal vibration and proprioception at the great toes. Coordination: Normal [id number] and rapid alternating movement. Gait and station were not assessed due to acuity of the stroke evaluation. LABS/IMAGING/OTHER DIAGNOSTIC DATA: WBC 6.9, hemoglobin 14.6, hematocrit 42, platelet count 192. INR 0.92. APTT is 30.3. Sodium of 131, potassium of 3, chloride of 93, BUN of 20, creatinine of 0.93, BUN/creatinine ratio is elevated at 21, glucose of 106, LDL is 112. Urinalysis shows no evidence of pyuria. CT head without contrast was obtained and reviewed. There is no evidence of acute intracranial abnormality. There is a moderate area of white matter changes consistent with chronic small vessel ischemic changes. ASSESSMENT AND RECOMMENDATION: 1. Ms. Lauren Crawford is a 73-year-old female with a history of hypertension, which is uncontrolled, who presented with word-finding difficulty. The diagnosis here is most likely hypertensive encephalopathy given the recurrent symptoms in the setting of an elevated blood pressure. According to the patient 's son, Raymon, the patient has has had symptoms of confusion on and off since mid august. Other less likely differential diagnosis including TIA to the left MCA vascular territory or an ictal phenomenon such as seizures. 2. Migraine headache with visual aura - the patient most likely is also having symptoms related to her headache with superimposed headaches related to her uncontrolled hypertension. 3. Suspect mild cognitive impairment. 4. Diffuse white matter changes consistent with small vessel disease, which is most likely secondary to aging and chronic uncontrolled hypertension. 5. Hyponatremia. 6. Hypokalemia. 7. Suspect dehydration related to diuretic use. RECOMMENDATIONS: Please admit the patient to the hospitalist service. Obtain an MRI of the brain, MRA head without contrast to evaluate for the degree of white matter changes. Please obtain an EEG to evaluate for any epileptiform abnormalities or generalized slowing. Formal cognitive testing can be done as an outpatient. Please provide a regimen to control her blood pressure. Please provide IV fluids to correct her most likely dehydrated state related to diuretics. In regards to the migraine treatment, start the patient on magnesium oxide 400 mg daily. She should not take Benadryl regularly as this could also worsen her memory and cause urinary impairment. Neuro-checks every 4 hours. No need for PT/OT/DRIER TAKE OFF TENDER evaluation and treatment as the suspicion for stroke criteria is low here. However, given the recurrent symptoms, it is reasonable to start the patient on 81 mg aspirin daily. Given the patient's generalized fatigue, I prefer not to start her on a statin therapy at this point. TIME SPENT: I spent a total of 75 minutes of which more than 50% was spent obtaining history, examining the patient, education/counselling, and discussing the treatment plan as mentioned above. I will continue to follow. [id number]/[facility] #: [id number] VERNA
[2018-09-28] MEDS: Acetaminophen TAB* 325 MG PO PRN ×2 (02:59→13:25)
[2018-09-28] MEDS: Heparin VIAL(*) 5000 UNITS/ML VIAL (FIVE THOUSAND) SUBCUT SCH ×2 (06:12→12:51)
[2018-09-28 06:52] LABS: HDL Cholesterol 39.6 mg/dL
[2018-09-28] MEDS ORDERED: Nadolol TAB* 40 MG PO SCH (09:00)
[2018-09-28] MEDS ORDERED: Aspirin 81 mg CHEW TAB* 81 MG TAB.CHEW PO SCH (09:00)
[2018-09-28] MEDS ORDERED: PARoxetine HCL TAB* 20 MG PO SCH (09:00)
[2018-09-28] MEDS ORDERED: Hydrochlorothiazide TAB* 25 MG PO SCH (09:00)
[2018-09-28] MEDS ORDERED: Oxybutynin XL TAB* 5 MG PO SCH (09:00)
[2018-09-28] MEDS ORDERED: Pantoprazole TAB * 40 MG TAB PO SCH (09:00)
[2018-09-28] MEDS ORDERED: Atorvastatin* 20 MG TAB PO SCH (11:00)
[2018-09-28] MEDS ORDERED: Atorvastatin* 10 MG TAB PO SCH ×2 (11:00)
[2018-09-28] MEDS ORDERED: amLODIPine TAB* 5 MG PO SCH (11:00)
[2018-09-28 11:17] LABS: BUN/Creatinine Ratio 19.5 (8-20); Calcium 9.2 mg/dL (8.6-10.3); EGFR African American 82.5 (>60); EGFR Non-African American 68.1 (>60); Potassium 3.3 mmol/L (3.5-5.0)
[2018-09-28] MEDS ORDERED: Potassium Chlor TAB* 20 MEQ TAB.ER PO ONE (12:28)
--- NOTE | 2018-09-28 12:48 | PN ---
Subjective Date of Service: 09/28/18 Length of Stay: 1 Days Neurology is following for headache. Interval History: The patient reports headache for 20 years. She feels much better today. She had an episode today where she had trouble putting toothpaste on her tooth brush. She felt as if her coordination was off. That resolved quickly after a minute. She has a headache. She described the headache as a dull pain, located in the frontal region, non-radiating, 4/10 in severity, and associated with photophobia. She "always" has headaches. She used to take Inderal which helped with her headaches. She ran out of the medication in the past and never got a refill. MRI brain without contrast completed: Diffuse white matter changes consistent with moderate small vessel ischemia. MRA head: no large vessel occlusion Carotid ultrasound: less than 50% stenosis in the ICA bilaterally. Review of Systems: Denied CP, SOB, or palpitations. Objective Active Medications: Acetaminophen (Tylenol Tab*) 650 mg PO Q4H PRN PRN Reason: FEVER/PAIN Last Admin: 09/28/18 02:59 Dose: 650 mg Amlodipine Besylate (Norvasc Tab*) 10 mg PO DAILY [facility] Last Admin: 09/28/18 10:53 Dose: 10 mg Aspirin (Aspirin 81 Mg Chew Tab*) 81 mg PO DAILY [facility] Last Admin: 09/28/18 08:16 Dose: 81 mg Atorvastatin Calcium (Lipitor*) 20 mg PO 0900 [facility] Last Admin: 09/28/18 10:52 Dose: 20 mg Heparin Sodium (Porcine) (Heparin Vial(*)) 5,000 units SUBCUT Q8HR [facility] Last Admin: 09/28/18 06:12 Dose: 5,000 units Hydralazine HCl (Apresoline Iv*) 5 mg IV SLOW PU Q6H PRN PRN Reason: SYSTOLIC BP GREATER THAN: Last Admin: 09/27/18 19:33 Dose: 5 mg Hydrochlorothiazide (Hydrodiuril Tab*) 25 mg PO DAILY [facility] Last Admin: 09/28/18 08:16 Dose: 25 mg Ondansetron HCl (Zofran Inj*) 4 mg IV Q4H PRN PRN Reason: NAUSEA/VOMITING Oxybutynin Chloride (Ditropan Xl Tab*) 5 mg PO DAILY [facility] Last Admin: 09/28/18 08:16 Dose: 5 mg Pantoprazole Sodium (Protonix Tab*) 40 mg PO DAILY [facility] Last Admin: 09/28/18 08:17 Dose: 40 mg Paroxetine HCl (Paxil Tab*) 20 mg PO DAILY [facility] Last Admin: 09/28/18 08:16 Dose: 20 mg Propranolol HCl (Inderal Tab*) 40 mg PO BID [facility] Vital Signs 09/28/18 09/28/18 09/28/18 04:35 07:42 08:00 Temperature 98.1 F 97.8 F Pulse Rate 72 70 Respiratory 18 19 16 Rate Blood Pressure 127/57 145/63 (mmHg) O2 Sat by Pulse 98 98 98 Oximetry 09/28/18 11:30 Temperature 97.7 F Pulse Rate 65 Respiratory 18 Rate Blood Pressure 140/61 (mmHg) O2 Sat by Pulse 98 Oximetry Intake and Output Last 24 Hours 09/26/18 09/27/18 09/28/18 09/29/18 06:59 06:59 06:59 06:59 Intake Total 1000 240 Output Total 0 Balance 1000 240 Weight 191 lb 6.4 oz Intake: IV Fluids 1000 Oral 0 240 Output: Urine 0 Oxygen Devices in Use Now: Nasal Cannula Neurology Exam: General: Well nourished, well developed, and in no acute distress HEENT: Normocephelic/atraumatic, sclera anicteric, mucous membranes moist Extremities: No clubbing, cyanosis, or edema Neurological Findings: Awake, alert, and oriented to person, place, and time. Speech: fluent without dysarthric, repetition intact Cranial Nerve: PERRL, EOM intact, VFF, no nystagmus. Motor: s/s throughout, proximal and distal extremities x4 tone/bulk normal Sensation: intact to LT/PP bilaterally upper and lower extremities Deep Tendon Reflex: 2+ symmetric in the upper/lower extremities, Babinski - down going Finger to nose, rapid alternating movements intact without tremor, no dysdiadochokinesia Gait: intact with good arm swing and stride Result Diagrams: 09/27/18 16:00 09/28/18 06:25 Assessment/Plan 1. Hypertensive encephalopathy- significant improvement. She feels back to her normal self except for a brief episode this morning of slight confusion that lasted less than a minute. Her BP was normal at that time. Not sure what this episode was all about but I did order an EEG to evaluate for epileptiform abnormalities. Raymon (son) is concerned that her BP may increase later tonight as this is what typically happens at home. Defer to the primary team. 2. Chronic migraine headache w/ aura- Currently her headache is manageable at 4/ 10 in severity. She is back on propranolol now. The dose of 40 mg twice daily may be a high, but if she is asymptomatic, continue that same dose. If she develops dizziness or bradycardia, then recommend decreasing the dose to 20 mg twice daily. I also recommend starting magnesium oxide 400 mg daily. Keep a headache diary. I will be more than happy to see her for follow-up in 4 weeks. We will arrange a follow-up. 3. White matter changes consistent with migraine headache and small vessel ischemia related to chronic uncontrolled hypertension- controlling her BP will reduce any new white matter changes. Time spent: 25 minutes of which > 50% was spent counseling and education regarding the diagnosis and discussing the treatment plan with the team, patient , and her son Raymon.
[2018-09-28] MEDS ORDERED: Propranolol TAB* 40 MG PO SCH (15:00)
[2018-09-28 16:41] VITALS: BP 135/59
--- NOTE | 2018-09-28 21:06 | EEG ---
ELECTROENCEPHALOGRAPHY: DATE OF STUDY: 09/28/18 - ROOM #449 DATE READ: 09/28/18 ORDERED BY: Dr. Radha Lares. CLINICAL PROBLEM: Ms. Crawford is a 73-year-old female who has headaches and an episode this morning of slight confusion. She has been hospitalized for hypertensive encephalopathy. Her MRI of the brain was unremarkable with no evidence of acute stroke. This EEG was obtained to evaluate for epileptiform abnormalities or electrographic seizures. MEDICATIONS: 1. Heparin. 2. Propranolol. 3. Amlodipine. 4. Aspirin. 5. Atorvastatin. 6. Hydrochlorothiazide. 7. Oxybutynin. 8. Pantoprazole. 9. Paroxetine. 10. Tylenol. 11. Hydralazine. 12. Ondansetron. TIMIN and end of study 1417. CLINICAL STATE: Waking and sleep. REPORT: The waking background showed appropriate organization with clearly defined anterior-posterior voltage and frequency gradients. There was a well- defined posterior dominant rhythm of 8.5 Hz which was symmetrical and showed normal reactivity. Anteriorly, there was an expected pattern of lower voltage irregular mixed fast frequencies. Attenuation of the occipital rhythm accompanied drowsiness. There was a brief sleep background that was appropriately organized with well-defined spindles and vertex waves. This sleep transient showed appropriate morphology and bilaterally synchronous and symmetrical. Hyperventilation and photic stimulation were not performed. EKG, regular rate and rhythm with a rate of 75 beats per minute. There were no epileptiform discharges or electrographic seizures. The most prominent features of this recording were rare, irregular, medium amplitude, theta wave slowing during excessive drowsy state that was seen predominantly in the right temporal region. This is a nonspecific finding. CLINICAL IMPRESSION: This is an essentially normal waking and sleep EEG with nonspecific theta slowing over the right temporal region during drowsiness. This is a nonspecific finding and could represent a transition in state; however , a focal neuronal dysfunction related to white matter small vessel ischemia cannot be entirely excluded. Clinical correlation is recommended. There were no epileptiform discharges or electrographic seizures. [id number]/[facility] #: [id number] [facility]ERSur[facility]it
--- NOTE | 2018-09-28 21:42 | DS ---
DISCHARGE SUMMARY: DATE OF ADMISSION: 09/27/18. DATE OF DISCHARGE: 09/28/18. DISPOSITION ON DISCHARGE: Home. CONDITION ON DISCHARGE: Good. PRIMARY DIAGNOSES: 1. Hypertensive urgency. 2. Possible transient ischemic attack. 3. Migraine headache. SECONDARY DIAGNOSES: Includes: 1. History of migraines. 2. Dyslipidemia. MEDICATIONS ON DISCHARGE: Include: 1. Aspirin 81 mg daily. 2. Cholecalciferol 2000 units daily. 3. Paroxetine 200 mg daily. 4. Omeprazole 20 mg daily. 5. Oxybutynin XL 5 mg daily. 6. Hydrochlorothiazide 25 mg daily. 7. Amlodipine 10 mg daily. 8. Propranolol 40 mg BID 9. Atorvastatin 20 mg in the evening. NOTE: Please note the addition of amlodipine 10 mg and transition of nadolol to propranolol 40 mg twice daily. IMAGING PERFORMED DURING THE HOSPITAL STAY: 1. MRI brain. Impression: No acute intracranial abnormalities. 2. MRA brain. Impression: Normal brain MRA. 3. Carotid Doppler ultrasound. Impression: Less than 50% stenosis of the bilateral internal carotid arteries. 4. Transthoracic echocardiogram with bubble. Impression: Global LVEF of 60%. There were late bubbles seen in the left atrium post Valsalva, possible patent foramen ovale versus other cardiopulmonary shunt, mild aortic regurgitation, trace MR, trace TR. No prior echo for comparison. Pertinent labs from hospital stay include potassium 3.0 on presentation, 3.3 on discharge, received potassium prior to discharge. Hemoglobin A1c is 5.4. Total cholesterol 184, LDL 111, HDL 39.6. HISTORY OF PRESENT ILLNESS AND HOSPITAL COURSE: A 73-year-old female with past medical history as outlined in the history of present illness on day of admission, had 2 recent previous visits to the emergency room with hypertension , and 2 weeks prior to presentation had her medications managed both in the emergency room as well as by her primary care physician, presented to the emergency room with neurological symptoms including brief aphasia, word finding difficulties that resolved after 15 minutes. On presentation, her blood pressure was over 200 systolic. She also had been reporting a headache that was similar to migraines in the past. Her blood pressure was controlled urgently with hydralazine. She was transitioned to start amlodipine. Her nadolol was transitioned to propranolol in an effort to offer non-specific beta acrmen that would also work as primary prophylaxis for her migraines. Her hydrochlorothiazide was continued at 25 mg and her potassium was repleted. Careful attention to her potassium should be made as an outpatient to ensure she does not need further potassium replacement. The differential for this patient's presenting symptoms do include hypertensive urgency as well as complicated migraine as well as a TIA. The MRI did not indicate any acute stroke. Because TIA remains on the differential, she was started on atorvastatin, was counseled to continue her aspirin. She was kept in the hospital to about 5 p.m. on the day of discharge to ensure she had adequate blood pressure control on new regimen of medications, as her son had indicated her blood pressure is usually well controlled in the morning, but tends to elevate in the evening. Her last blood pressure is systolic 135 over diastolic in the 80s prior, now 135/59 at the time of discharge. No complications during the course of the patient's hospital stay. At followup, please; 1. Please follow up BMP for potassium stability on 25 mg hydrochlorothiazide. 2. Follow up blood pressure, make adjustments as necessary. 3. The patient was started on low dose atorvastatin secondary to risk prevention secondary to possible transient ischemic attack, follow cholesterol as necessary. 4. Can consider ___initiating___ migraine medicines if migraines continue to a problem. Reasons to return to the hospital including but not limited to recurrent or worsening symptoms, neurological symptoms, aphasia, confusion, asymmetric weakness, slurred speech, chest pain, shortness of breath, nausea, vomiting, lightheadedness, loss of consciousness or near loss of consciousness, bleeding from any source, inability to obtain or tolerate medications discussed at length with the patient. She acknowledged understanding. TIME SPENT: Greater than 45 minutes were spent discharging the patient, greater than half was spent [id number] with the patient. [id number]/[facility] #: [id number] VERNA
== END 2018-09-28 17:00 | disposition home or self-care (01) ==
LOC: ED 15:05 → MEDTELE 18:18
PROVIDERS: ADMIT Internal Medicine; ATTEND Internal Medicine
DX: I16.0 Hypertensive urgency (principal); G43.909 Migraine, unspecified, not intractable, without status migrainosus; E78.5 Hyperlipidemia, unspecified; R47.81 Slurred speech; I10 Essential (primary) hypertension; Z88.0 Allergy status to penicillin; Z85.3 Personal history of malignant neoplasm of breast; Z79.82 Long term (current) use of aspirin; I65.23 Occlusion and stenosis of bilateral carotid arteries; Z79.899 Other long term (current) drug therapy; K58.9 Irritable bowel syndrome, unspecified; F39 Unspecified mood [affective] disorder; I67.4 Hypertensive encephalopathy
CPT/HCPCS: 36415; 70450; 70544; 70551; 71045; 80048; 80053; 80061; 81003; 82607; 83036; 83605; 84443; 84484; 85025; 85610; 85730; 86850; 86900; 86901; 93005; 93306; 93880; 95819; 96374; 96375; 99284; A9270-GY; G0378; J0360; J1644

== ENCOUNTER 2018-10-24 04:15 | Emergency (ER) | payer MEDICARE ==
--- OUTSIDE RECORDS SUMMARY | 2018-10-24 04:32 | XMS REPORT | Continuity of Care Document ---
:1945 External Reference #:[id number] Author Name Sravanthi Oconnor M.D. Address [address] [facility] [place] [address] Care Team Providers Name Role Phone Sravanthi Oconnor M.D. Care Team Information Clinical Laboratory Scientist Unavailable Sravanthi Oconnor M.D. Primary Care Physician Unavailable Payers Date Identification Numbers Payment Provider Subscriber Effective: 2016 Policy Number: [id number] Medicare Blue Ppo Lauren [employer] Group Number: [id number] PayID: [id number] [place] [address] Advance Directives Description No Information Available Problems Date Description Provider Status Onset: 08/17/2017 Personal history of primary Sravanthi Oconnor M.D. Active malignant neoplasm of breast Onset: 08/17/2017 Essential hypertension Sravanthi Oconnor M.D. Active Onset: 08/17/2017 Gastroesophageal reflux disease Sravanthi Oconnor M.D. Active Onset: 08/17/2017 Mixed urinary incontinence Sravanthi Oconnor M.D. Active Onset: 11/16/2017 Impaired fasting glycaemia Sravanthi Oconnor M.D. Active Onset: 09/29/2018 Migraine with typical aura Sravanthi Oconnor M.D. Active Onset: 04/26/2018 Malaise and fatigue Kenneth Flores M.D. Resolved Resolved: 05/04/2018 Onset: 04/26/2018 Cough Kenneth Flores M.D. Resolved Resolved: 05/04/2018 Family History Date Family Member(s) Observation Comments Father due to Stomach () - brain Cancer cancer Onset: (age 88 Mother Stroke Years) Mother due to Stroke () Mother Hip Fracture First Son Hypertension First Son Seizure Second Son Diabetes Mellitus, II First Sister Lung Cancer First Sister Chronic Obstructive Pulmonary Disease (COPD) First Sister Deaf Second Sister Heart Disease Third Sister Heart Disease Social History Type Date Description Comments Sex Unknown Marital Status Legal Status: 2017 Lives With Alone Diet Healthy, Well Balanced Tobacco Use Start: Unknown End: Former Cigarette Smoker >50 years ago Unknown ETOH Use Occasional 1x week Tobacco Use Start: Unknown End: Patient is a former Unknown smoker Smoking Status Reviewed: 08/17/17 Patient is a former smoker Exercise Type/Frequency Exercises regularly Allergies, Adverse Reactions, Alerts Date Description Reaction Status Severity Comments 09/14/2018 Penicillin Active rash 09/14/2018 Peanuts Active mouth swelling 08/17/2017 NKDA Inactive Medications Medication Date Status Form Strength Qnty SIG Indications Ordering Provider Atorvastatin Calcium 09/29 Active Tablets 20mg 90tab 1 by s naomy Oconnor, every M.D. day Amlodipine Besylate 09/29 Active Tablets 10mg 90tab 1 by s mouth Elvin, every M.D. day Sumatriptan Succinate 09/29 Active Tablets 50mg 14tab take one s tablet Elvin, by mouth M.D. at the onset of migraine . november repeat dose in two hours as needed Hydrochlorothiazide 09/19 Active Tablets 25mg 90tab 1 by s naomy Oconnor, every M.D. day Oxybutynin Chloride 08/31 Active Tablets 5mg 30tab 1 by N39.41 Sravanthi ER ER 24HR s naomy Oconnor, every M.D. day Omeprazole 05/25 Active Capsules 40mg 30cap 1 by s naomy Oconnor, every M.D. day Aspirin Childrens Active Chewtabs 81mg 1 po qd Ipratropium Searchlight Active Solution 0.03% 30ml 1 spray phoebe Oconnor, nostril M.D. every day as needed Paroxetine HCL Active Tablets 20mg 90tab Take One s Tablet Elvin, By Mouth M.D. Every Day Propranolol HCL Active Tablets 40mg 60tab 1 tab by s naomy Oconnor, twice a M.D. day Amoxicillin/Clavulana 06/13 Hx Tablets 875-125mg 20tab 1 by J01.00 Sravanthi s mouth Elvin, - twice a M.D. Triamterene/Hydrochlo 05/10 Hx Capsules 37.5-25mg 90cap 1 by Sravanthi peters s mouth Shade, - every M.D. Azithromycin 04/26 Hx Tablets 250mg 6tabs take 2 Kenneth F. tablets Shallish, - by mouth M.D. 05/04 on day then 1 tablet on days 2 through Amoxicillin/Clavulana 09/08 Hx Tablets 875-125mg 30tab 1 by J01. Sebastián Tavarez s mouth Carito - twice a d, Nadolol Hx Tablets 20mg 90tab 1 by Sravanthi s [facility] Elvin, - every M.D. Omeprazole Hx Capsules 20mg [address] naomy Shade, - every M.D. Triamterene/Hydrochlo Hx Tablets 37.5-25mg 90tab 1 by Sravanthi peters s [facility], - every M.D. Promethazine HCL Hx Tablets 25mg 1 by Unknown mouth - every 05/25 hour needed n/v Promethazine HCL 0000 Hx Tablets 25mg 1 by Unknown / mouth - every 6 09/29 hour needed nausea/h eadache Immunizations Description No Information Available Vital Signs Date Vital Result Comment 09/29/2018 11:54am BP Systolic 118 mmHg BP Diastolic 60 mmHg Heart Rate 70 /min Body Temperature 97.7 F Respiratory Rate 16 /min Height 64.5 inches 5'4.50" Weight 190.00 lb BMI (Body Mass Index) 32.1 kg/m2 09/14/2018 2:20pm BP Systolic 120 mmHg BP Diastolic 64 mmHg Heart Rate 68 /min Body Temperature 97.9 F Respiratory Rate 16 /min Height 65 inches 5'5" Weight 195.00 lb BMI (Body Mass Index) 32.4 kg/m2 08/31/2018 4:35pm BP Systolic 112 mmHg BP Diastolic 78 mmHg Heart Rate 63 /min Body Temperature 98.1 F Respiratory Rate 16 /min Height 65 inches 5'5" Weight 197.00 lb BMI (Body Mass Index) 32.8 kg/m2 05/25/2018 11:33am BP Systolic 130 mmHg BP Diastolic 76 mmHg Heart Rate 72 /min Body Temperature 98.1 F Respiratory Rate 16 /min Weight 192.00 lb 05/04/2018 8:12am BP Systolic 128 mmHg BP Diastolic 70 mmHg Heart Rate 70 /min Body Temperature 97.2 F Respiratory Rate 20 /min Weight 192.00 lb 04/26/2018 10:42am BP Systolic 130 mmHg BP Diastolic 70 mmHg Heart Rate 78 /min Body Temperature 97.7 F Respiratory Rate 20 /min Weight 193.00 lb 11/16/2017 11:12am BP Systolic 120 mmHg BP Diastolic 74 mmHg Heart Rate 80 /min Body Temperature 98.1 F Respiratory Rate 18 /min Height 64.5 inches 5'4.50" Weight 194.00 lb BMI (Body Mass Index) 32.8 kg/m2 09/08/2017 4:25pm BP Systolic 124 mmHg BP Diastolic 70 mmHg Heart Rate 60 /min Body Temperature 97.0 F Respiratory Rate 16 /min Height 64.5 inches 5'4.50" Weight 195.00 lb BMI (Body Mass Index) 33.0 kg/m2 08/17/2017 2:02pm BP Systolic 140 mmHg BP Diastolic 70 mmHg Heart Rate 64 /min Body Temperature 98.4 F Respiratory Rate 16 /min Height 64.5 inches 5'4.50" Weight 192.00 lb BMI (Body Mass Index) 32.4 kg/m2 Results Test Date Facility Test Result H/L Range Note Inr/Protime 09/27/2018 [facility] Inr 0.92 N 0.77-1.02 Laboratory test 09/27/2018 [facility] Partial Thrombo 30.3 seconds N 26.0-36.3 finding Time PTT Lactic Acid 1.0 mmol/L N 0.5-2.0 1 CBC Auto Diff 09/27/2018 [facility] White Blood Count 6.9 10^3/uL N 3.5-10.8 Red Blood Count 4.94 10^6/uL N 4.00-5.40 Hemoglobin 14.6 g/dL N 12.0-16.0 Hematocrit 42 % N 35-47 Mean Corpuscular Volume 85 fL N 80-97 Mean Corpuscular Hemoglobin 30 pg N 27-31 Mean Corpuscular HGB Conc 35 g/dL N 31-36 Red Cell Distribution Width 14 % N 10.5-15 Platelet Count 192 10^3/uL N 150-450 Mean Platelet Volume 10.3 fL N 7.4-10.4 Abs Neutrophils 4.8 10^3/uL N 1.5-7.7 Abs Lymphocytes 1.3 10^3/uL N 1.0-4.8 Abs Monocytes 0.6 10^3/uL N 0-0.8 Abs Eosinophils 0.1 10^3/uL N 0-0.6 Abs Basophils 0 10^3/uL N 0-0.2 Abs Nucleated RBC 0 10^3/uL Granulocyte % 70.2 % Lymphocyte % 18.8 % Monocyte % 8.2 % Eosinophil % 2.1 % Basophil % 0.7 % Nucleated Red Blood Cells % 0.1 Type & Screen 09/27/2018 [facility] Patient Blood Type O Positive Antibody Screen NEGATIVE Urinalysis Profile 09/27/2018 [facility] Urine Color Straw Urine Appearance Clear Urine Specific Bolivar 1.005 Low 1.010-1.030 Urine pH 7.0 N 5-9 Urine Urobilinogen Negative Negative Urine Ketones Negative Negative Urine Protein Negative Negative Urine Leukocytes Negative Negative Urine Blood Negative Negative Urine Nitrite Negative Negative Urine Bilirubin Negative Negative Urine Glucose Negative Negative Comp Metabolic Panel 09/27/2018 [facility] Sodium 131 mmol/L Low 135-145 Potassium 3.0 mmol/L Low 3.5-5.0 Chloride 93 mmol/L Low 101-111 Co2 Carbon Dioxide 30 mmol/L N 22-32 Anion Gap 8 mmol/L N 2-11 Glucose 106 mg/dL High 70-100 Blood Urea Nitrogen 20 mg/dL N 6-24 Creatinine 0.93 mg/dL N 0.51-0.95 BUN/Creatinine Ratio 21.5 High 8-20 Calcium 9.3 mg/dL N 8.6-10.3 Total Protein 7.3 g/dL N 6.4-8.9 Albumin 4.5 g/dL N 3.2-5.2 Globulin 2.8 g/dL N 2-4 Albumin/Globulin Ratio 1.6 N 1-3 Total Bilirubin 0.70 mg/dL N 0.2-1.0 Alkaline Phosphatase 81 U/L N 34-104 Alt 31 U/L N 7-52 Ast 26 U/L N 13-39 Egfr Non- 58.9 >60 Egfr 71.3 >60 2 Lipid Profile (Trig/Chol/HDL) 09/27/2018 [facility] Triglycerides 217 mg/dL 3 Cholesterol 198 mg/dL 4 HDL Cholesterol 42.4 mg/dL 5 LDL Cholesterol 112 mg/dL 6 Laboratory test finding 09/27/2018 [facility] Troponin I 0.00 ng/mL <0.04 7 TSH (Thyroid Stim Horm) 3.41 mcIU/mL N 0.34-5.60 Vitamin B12 326 pg/mL N 180-914 8 Hemoglobin A1c (Glyco HGB) 5.4 % N 4.0-5.6 9 Laboratory test finding 09/27/2018 [facility] Point of Care 107 mg/dL High 70- 100 10 Glucose Basic Metabolic Panel 09/24/2018 [facility] Sodium 140 mmol/L N 135-145 Potassium 3.6 mmol/L N 3.5-5.0 Chloride 100 mmol/L Low 101-111 Co2 Carbon Dioxide 32 mmol/L N 22-32 Anion Gap 8 mmol/L N 2-11 Glucose 98 mg/dL N 70-100 Blood Urea Nitrogen 23 mg/dL N 6-24 Creatinine 0.90 mg/dL N 0.51-0.95 BUN/Creatinine Ratio 25.6 High 8-20 Calcium 9.7 mg/dL N 8.6-10.3 Egfr Non- 61.2 >60 Egfr 74.1 >60 11 CBC Auto Diff 09/24/2018 [facility] White Blood Count 6.4 10^3/uL N 3.5-10.8 Red Blood Count 4.94 10^6/uL N 4.00-5.40 Hemoglobin 14.6 g/dL N 12.0-16.0 Hematocrit 43 % N 35-47 Mean Corpuscular Volume 86 fL N 80-97 Mean Corpuscular Hemoglobin 30 pg N 27-31 Mean Corpuscular HGB Conc 34 g/dL N 31-36 Red Cell Distribution Width 14 % N 10.5-15 Platelet Count 188 10^3/uL N 150-450 Mean Platelet Volume 10.4 fL N 7.4-10.4 Abs Neutrophils 3.4 10^3/uL N 1.5-7.7 Abs Lymphocytes 2.3 10^3/uL N 1.0-4.8 Abs Monocytes 0.5 10^3/uL N 0-0.8 Abs Eosinophils 0.2 10^3/uL N 0-0.6 Abs Basophils 0.1 10^3/uL N 0-0.2 Abs Nucleated RBC 0 10^3/uL Granulocyte % 53.5 % Lymphocyte % 35.1 % Monocyte % 7.8 % Eosinophil % 2.7 % Basophil % 0.9 % Nucleated Red Blood Cells % 0.1 Urinalysis Profile 09/24/2018 [facility] Urine Color Straw Urine Appearance Clear Urine Specific Bolivar 1.006 Low 1.010-1.030 Urine pH 7.0 N 5-9 Urine Urobilinogen Negative Negative Urine Ketones Negative Negative Urine Protein Negative Negative Urine Leukocytes Negative Negative Urine Blood Negative Negative Urine Nitrite Negative Negative Urine Bilirubin Negative Negative Urine Glucose Negative Negative Urinalysis Profile 09/13/2018 [facility] Urine Color Yellow Urine Appearance Clear Urine Specific Bolivar 1.011 N 1.010-1.030 Urine pH 7.0 N 5-9 Urine Urobilinogen Negative Negative Urine Ketones Trace Abnormal Negative Urine Protein 1+(30 mg/dL) Abnormal Negative Urine Leukocytes Negative Negative Urine Blood Negative Negative Urine Nitrite Negative Negative Urine Bilirubin Negative Negative Urine Glucose Negative Negative Urine White Blood Cell Absent Absent Urine Red Blood Cell 1+(3-5/hpf) Abnormal Absent Urine Bacteria Absent Absent Urine Squamous Epithelial Cell Present Abnormal Absent Comp Metabolic Panel 09/13/2018 [facility] Sodium 132 mmol/L Low 135-145 Potassium 3.6 mmol/L N 3.5-5.0 Chloride 95 mmol/L Low 101-111 Co2 Carbon Dioxide 25 mmol/L N 22-32 Anion Gap 12 mmol/L High 2-11 Glucose 136 mg/dL High 70-100 Blood Urea Nitrogen 13 mg/dL N 6-24 Creatinine 0.71 mg/dL N 0.51-0.95 BUN/Creatinine Ratio 18.3 N 8-20 Calcium 9.8 mg/dL N 8.6-10.3 Total Protein 7.9 g/dL N 6.4-8.9 Albumin 4.9 g/dL N 3.2-5.2 Globulin 3.0 g/dL N 2-4 Albumin/Globulin Ratio 1.6 N 1-3 Total Bilirubin 1.10 mg/dL High 0.2-1.0 Alkaline Phosphatase 71 U/L N 34-104 Alt 30 U/L N 7-52 Ast 24 U/L N 13-39 Egfr Non- 80.5 >60 Egfr 97.4 >60 12 Laboratory test 09/13/2018 [facility] C Reactive Protein 8.38 mg/L High <8.01 finding Inr/Protime 09/13/2018 [facility] Inr 0.98 N 0.77-1.02 CBC Auto Diff 09/13/2018 [facility] White Blood Count 9.0 10^3/uL N 3.5-10.8 Red Blood Count 5.35 10^6/uL N 4.00-5.40 Hemoglobin 15.7 g/dL N 12.0-16.0 Hematocrit 45 % N 35-47 Mean Corpuscular Volume 84 fL N 80-97 Mean Corpuscular Hemoglobin 29 pg N 27-31 Mean Corpuscular HGB Conc 35 g/dL N 31-36 Red Cell Distribution Width 14 % N 10.5-15 Platelet Count 189 10^3/uL N 150-450 Mean Platelet Volume 10.7 fL High 7.4-10.4 Abs Neutrophils 7.7 10^3/uL N 1.5-7.7 Abs Lymphocytes 0.9 10^3/uL Low 1.0-4.8 Abs Monocytes 0.3 10^3/uL N 0-0.8 Abs Eosinophils 0 10^3/uL N 0-0.6 Abs Basophils 0.1 10^3/uL N 0-0.2 Abs Nucleated RBC 0 10^3/uL Granulocyte % 85.5 % Lymphocyte % 10.3 % Monocyte % 3.2 % Eosinophil % 0.2 % Basophil % 0.8 % Nucleated Red Blood Cells % 0 Laboratory test 08/31/2018 [facility] C-Reactive 10.7 mg/L High 0.0-4.9 13 finding 1447 [facility] Protein, [place] [address] (601)- - FSH + LH + E2 08/31/2018 [facility] LH 25.6 14 1447 [facility] mIU/[place] [address] (605)- - FSH 46.0 mIU/mL 15 Estradiol <5.0 pg/mL 16 Comprehensive Metabolic 08/31/2018 [facility] ([facility]) Sodium 143 mEq/L 134-149 Prof Potassium 4.2 mEq/L 3.6-5.5 Chloride 105 mEq/L 94-112 Carbon Dioxide 21 mEq/L 21-32 Glucose 99 mg/dL 70-105 BUN 17 mg/dL 6-26 Creatinine 0.8 mg/dL 0.6-1.4 BUN/Creat Ratio 21.3 CALC 8.0-36.0 Calcium 8.8 mg/dL 8.6-10.2 Total Protein 6.9 g/dL 6.4-8.3 Albumin 4.6 g/dL 3.8-5.5 Globulin 2.3 g/dL 2.0-4.8 A/G Ratio 2.0 CALC 0.6-2.3 Alk. Phosphatase 80 U/L 30-110 Alt (SGPT) 36 U/L High 7-35 Ast (Sgot) 23 U/L 5-34 Total Bilirubin 0.6 mg/dL 0.2-1.3 GFR Non- >60 ml/min/1.73m^ >=60 GFR >60 ml/min/1.73m^ >=60 Laboratory test 08/31/2018 [facility] HIV 1&2 Antibody NEGATIVE Negative finding (607)- - Screen (a) Ua - Micro (a) 08/31/2018 [facility] Appearance CLEAR (607)- - Color YELLOW Glucose, Urine ([facility]/CTX) NEG Bilirubin NEG Ketones NEG SP Grav 1.015 Blood NEG PH 7.0 Protein NEG Urobil 0.2 Nitrite NEG Leukocytes ([facility]/Centrex) TRACE # Hyaline - /Lpf Granular - /Lpf WBC ([facility],Centrex) 2-4 # RBC - Mucus ([facility]/CBC/Centrex) - /Lpf Epith FEW /Lpf # Bacteria TRACE /Hpf # Amorphous ([facility]/Centrex) - /Lpf Crystals, Fluid ([facility]/CMC/CTX) - Z#Comments - Laboratory test finding 08/16/2018 [facility] TSH (Thyroid Stim 4.51 mcIU/mL N 0.34-5.60 Horm) Free T4 (Free Thyroxine) 0.94 ng/dL N 0.61-1.12 Hemoglobin A1c (Glyco HGB) 5.5 % N 4.0-5.6 17 CBC Auto Diff 08/16/2018 [facility] White Blood Count 5.5 10^3/uL N 3.5-10.8 Red Blood Count 5.10 10^6/uL N 4.00-5.40 Hemoglobin 14.9 g/dL N 12.0-16.0 Hematocrit 44 % N 35-47 Mean Corpuscular Volume 85 fL N 80-97 Mean Corpuscular Hemoglobin 29 pg N 27-31 Mean Corpuscular HGB Conc 34 g/dL N 31-36 Red Cell Distribution Width 14 % N 10.5-15 Platelet Count 171 10^3/uL N 150-450 Mean Platelet Volume 11.4 fL High 7.4-10.4 Abs Neutrophils 3.6 10^3/uL N 1.5-7.7 Abs Lymphocytes 1.3 10^3/uL N 1.0-4.8 Abs Monocytes 0.4 10^3/uL N 0-0.8 Abs Eosinophils 0.2 10^3/uL N 0-0.6 Abs Basophils 0 10^3/uL N 0-0.2 Abs Nucleated RBC 0 10^3/uL Granulocyte % 65.1 % Lymphocyte % 23.8 % Monocyte % 7.4 % Eosinophil % 2.9 % Basophil % 0.8 % Nucleated Red Blood Cells % 0.3 Lipid Profile (Trig/Chol/HDL) 08/16/2018 [facility] Triglycerides 173 mg/dL 18 Cholesterol 202 mg/dL 19 HDL Cholesterol 44.6 mg/dL 20 LDL Cholesterol 123 mg/dL 21 Comp Metabolic Panel 08/16/2018 [facility] Sodium 140 mmol/L N 135-145 Chloride 102 mmol/L N 101-111 Co2 Carbon Dioxide 27 mmol/L N 22-32 Glucose 124 mg/dL High 70-100 Blood Urea Nitrogen 21 mg/dL N 6-24 Creatinine 0.97 mg/dL High 0.51-0.95 BUN/Creatinine Ratio 21.6 High 8-20 Calcium 9.5 mg/dL N 8.6-10.3 Total Protein 7.0 g/dL N 6.4-8.9 Albumin 4.2 g/dL N 3.2-5.2 Globulin 2.8 g/dL N 2-4 Albumin/Globulin Ratio 1.5 N 1-3 Total Bilirubin 0.80 mg/dL N 0.2-1.0 Alkaline Phosphatase 83 U/L N 34-104 Alt 29 U/L N 7-52 Egfr Non- 56.1 >60 Egfr 67.9 >60 22 Potassium TNP mmol/L 3.5-5.0 23 Anion Gap 11 mmol/L N 2-11 Ast TNP U/L 13-39 24 CBC Electronic [facility] 04/26/2018 Tom Alejandra ([facility]) WBC 5.9 x10^3/UL 4.0- 10.0 RBC 4.95 x10^6/UL 3.93-6.00 HGB 14.4 g/dL 12.0-17.0 HCT 43 % 35-50 MCV 86.3 fL 80.0-95.0 MCH 29.1 pg 25.6-32.2 MCHC 33.7 g/dL 32.2-36.0 RDW-CV 13.9 % 11.6-14.4 PLT 236 x10^3/UL 163-400 MPV 12.9 fL High 9.4-12.4 Breann# 3.60 x10^3/UL 1.56-6.13 Lymph# 1.24 x10^3/UL 1.18-3.74 Wilcox# 0.63 x10^3/UL 0.24-0.82 Eos # 0.3 x10^3/UL 0.0-0.5 Baso # 0.05 x10^3/UL 0.01-0.08 Breann% 61.3 % 34.0-70.0 Lymph % 21.2 % 20.0-52.0 Wilcox% 10.8 % 5.0-12.0 Eos% 5.1 % 0.7-7.0 Baso% 0.9 % 0.1-1.2 Laboratory test 04/26/2018 Tom Alejandra ([facility]) Free T4 1.44 ng/dL 0.75- 1.54 finding TSH 3.01 mIU/L 0.50-6.00 Comprehensive Metabolic 04/26/2018 Tom Alejandra ([facility]) Sodium 138 mEq/L 134-149 Prof Potassium 3.7 mEq/L 3.6-5.5 Chloride 96 mEq/L [...] >60 ml/min/1.73m^ >=60 GFR >60 ml/min/1.73m^ >=60 CBC Electronic a 11/02/2017 Tom Roberts ([facility]) WBC 4.5 x10^3/UL 4.0- 10.0 RBC 4.87 x10^6/UL 3.93-6.00 HGB 14.3 g/dL 12.0-17.0 HCT 41 % 35-50 MCV 84.8 fL 80.0-95.0 MCH 29.4 pg 25.6-32.2 MCHC 34.6 g/dL 32.2-36.0 RDW-CV 13.7 % 11.6-14.4 PLT 171 x10^3/UL 163-400 MPV 12.3 fL 9.4-12.4 Breann# 2.91 x10^3/UL 1.56-6.13 Lymph# 1.13 x10^3/UL Low 1.18-3.74 Wilcox# 0.31 x10^3/UL 0.24-0.82 Eos # 0.1 x10^3/UL 0.0-0.5 Baso # 0.04 x10^3/UL 0.01-0.08 Breann% 64.4 % 34.0-70.0 Lymph % 25.0 % 20.0-52.0 Wilcox% 6.9 % 5.0-12.0 Eos% 2.4 % 0.7-7.0 Baso% 0.9 % 0.1-1.2 Laboratory test 11/02/2017 Tom Roberts ([facility]) Free T4 1.01 ng/dL 0.75- 1.54 finding TSH 3.11 mIU/L 0.50-6.00 Lipid Profile 11/02/2017 Tom Roberts ([facility]) Cholesterol 204 mg/dL High 120-200 Triglycerides 124 mg/dL 30-200 HDL Cholesterol 46 mg/dL 30-85 LDL (Calculated) 133 CALC High 0-129 VLDL Cholesterol 25 mg/dL 0-50 HDL Risk Factor 4.4 CALC 0.0-4.4 Comprehensive Metabolic 11/02/2017 Santos Laejandra ([facility]) Sodium 136 mEq/L 134-149 Prof Potassium 3.7 mEq/L 3.6-5.5 Chloride 95 mEq/L 94-112 Carbon Dioxide 29 mEq/L 21-32 Glucose 137 mg/dL High 70-105 25 BUN 17 mg/dL 6-26 Creatinine 0.8 mg/dL [...] >=60 GFR >60 ml/min/1.73m^ >=60 Laboratory test 11/02/2017 [facility] Luteinizing 19.4 mIU/mL 26, 27 finding 1447 [facility] Hormone(LH), [place] [address] ([phone] - Estradiol <5.0 pg/mL 28 FSH, Serum 11/02/2017 [facility] FSH 49.5 mIU/mL 29 14[address] [place] [address] (891)- - 1 [facility] Severe Sepsis and Septic Shock Management Bundle Measure requires all lactic acids initially measuring >2.0 mmol/L be repeated. 2 Because ethnic data is not always readily available, this report includes an eGFR for both -Americans and non- Americans. The National Kidney Disease Education Program (NKDEP) does not endorse the use of the MDRD equation for patients that are not between the ages of 18 and 70, are , have extremes of body size, muscle mass, or nutritional status, or are non- or non-. According to the National Kidney Foundation, irrespective of diagnosis, the stage of the disease is based on the level of kidney function: Stage Description GFR(mL/min/1.73 m(2)) 1 Kidney damage with normal or decreased GFR 90 2 Kidney damage with mild decrease in GFR 60-89 3 Moderate decrease in GFR 30-59 4 Severe decrease in GFR 15-29 5 Kidney failure <15 (or dialysis) 3 Desirable: <150 Borderline High: 150-199 High: 200-499 Very High: >500 4 Desirable: <200 Borderline High: 200-239 High: >239 5 Low: <40 Desirable: 40-60 High: >60 6 Desirable: <100 Near Optimal: 100-129 Borderline High: 130-159 High: 160-189 Very High: >189 7 Troponin-I testing on Plasma Separator Tubes (PST) has a known false positive rate of 0.20-0.40%. All positive troponins reflex immediate secondary confirmatory testing. 8 Normal Range 180 to 914 Indeterminate Range 145 to 180 Deficient Range <145 9 Therapeutic target for the treatment of diabetes mellitus patients is <7% HBA1C, and in selective patients <6.0%. Please refer to [place] [employer] diabetic care guidelines for further information. 10 Butcher Scullion: [id number] 11 Because ethnic data is not always readily available, this report includes an eGFR for both -Americans and non- Americans. The National Kidney Disease Education Program (NKDEP) does not endorse the use of the MDRD equation for patients that are not between the ages of 18 and 70, are , have extremes of body size, muscle mass, or nutritional status, or are non- or non-. According to the National Kidney Foundation, irrespective of diagnosis, the stage of the disease is based on the level of kidney function: Stage Description GFR(mL/min/1.73 m(2)) 1 Kidney damage with normal or decreased GFR 90 2 Kidney damage with mild decrease in GFR 60-89 3 Moderate decrease in GFR 30-59 4 Severe decrease in GFR 15-29 5 Kidney failure <15 (or dialysis) 12 Because ethnic data is not always readily available, this report includes an eGFR for both -Americans and non- Americans. The National Kidney Disease Education Program (NKDEP) does not endorse the use of the MDRD equation for patients that are not between the ages of 18 and 70, are , have extremes of body size, muscle mass, or nutritional status, or are non- or non-. According to the National Kidney Foundation, irrespective of diagnosis, the stage of the disease is based on the level of kidney function: Stage Description GFR(mL/min/1.73 m(2)) 1 Kidney damage with normal or decreased GFR 90 2 Kidney damage with mild decrease in GFR 60-89 3 Moderate decrease in GFR 30-59 4 Severe decrease in GFR 15-29 5 Kidney failure <15 (or dialysis) 13 serum 14 Adult Female: Follicular phase 2.4 - 12.6 Ovulation phase 14.0 - 95.6 Luteal phase 1.0 - 11.4 Postmenopausal 7.7 - 58.5 15 Adult Female: Follicular phase 3.5 - 12.5 Ovulation phase 4.7 - 21.5 Luteal phase 1.7 - 7.7 Postmenopausal 25.8 - 134.8 16 Adult Female: Follicular phase 12.5 - 166.0 Ovulation phase 85.8 - 498.0 Luteal phase 43.8 - 211.0 Postmenopausal <6.0 - 54.7 1st trimester 215.0 - >4300.0 Girls (1-10 years) 6.0 - 27.0 [place] ECLIA methodology 17 Therapeutic target for the treatment of diabetes mellitus patients is <7% HBA1C, and in selective patients <6.0%. Please refer to [place] [employer] diabetic care guidelines for further information. 18 Desirable: <150 Borderline High: 150-199 High: 200-499 Very High: >500 19 Desirable: <200 Borderline High: 200-239 High: >239 20 Low: <40 Desirable: 40-60 High: >60 21 Desirable: <100 Near Optimal: 100-129 Borderline High: 130-159 High: 160-189 Very High: >189 22 Because ethnic data is not always readily available, this report includes an eGFR for both -Americans and non- Americans. The National Kidney Disease Education Program (NKDEP) does not endorse the use of the MDRD equation for patients that are not between the ages of 18 and 70, are , have extremes of body size, muscle mass, or nutritional status, or are non- or non-. According to the National Kidney Foundation, irrespective of diagnosis, the stage of the disease is based on the level of kidney function: Stage Description GFR(mL/min/1.73 m(2)) 1 Kidney damage with normal or decreased GFR 90 2 Kidney damage with mild decrease in GFR 60-89 3 Moderate decrease in GFR 30-59 4 Severe decrease in GFR 15-29 5 Kidney failure <15 (or dialysis) 23 Specimen Hemolyzed. Result may not be valid. Unable to report test result due to hemolysis. 24 Unable to report test result due to hemolysis. 25 RESULTS VERIFIED BY REPEAT ANALYSIS 26 Adult Female: Follicular phase 2.4 - 12.6 Ovulation phase 14.0 - 95.6 Luteal phase 1.0 - 11.4 Postmenopausal 7.7 - 58.5 28 Adult Female: Follicular phase 12.5 - 166.0 Ovulation phase 85.8 - 498.0 Luteal phase 43.8 - 211.0 Postmenopausal <6.0 - 54.7 1st trimester 215.0 - >4300.0 Girls (1-10 years) 6.0 - 27.0 [place] ECLIA methodology 29 Adult Female: Follicular phase 3.5 - 12.5 Ovulation phase 4.7 - 21.5 Luteal phase 1.7 - 7.7 Postmenopausal 25.8 - 134.8 Procedures Date Code Description Status 05/18/2018 25717947 Mammogram Completed 07/26/2013 [id number] Colonoscopy Completed Encounters Type Date Location Provider Dx Diagnosis Office Visit 09/14/2018 2:20p [facility] Office Sravanthi Oconnor M.D. R51 Headache I10 Essential (primary) hypertension R41.0 Disorientation, unspecified Office Visit 08/31/2018 4:20p [facility] Office Sravanthi Oconnor, N95.1 Menopausal and M.D. female climacteric states R73.01 Impaired fasting glucose I10 Essential (primary) hypertension E66.9 Obesity, unspecified N39.41 Urge incontinence R61 Generalized hyperhidrosis Z11.4 Encounter for screening for human immunodeficiency virus Office Visit 05/25/2018 11:20a [facility] Office Sravanthi Oconnor, I10 Essential (primary) M.D. hypertension R73.01 Impaired fasting glucose K21.9 Gastro-esophageal reflux disease without esophagitis K43.9 Ventral hernia without obstruction or gangrene R09.81 Nasal congestion Office Visit 05/04/2018 8:20a [facility] Sravanthi Oconnor, I10 Essential (primary) M.D. hypertension N95.1 Menopausal and female climacteric states Z85.3 Personal history of malignant neoplasm of breast R73.01 Impaired fasting glucose Office Visit 04/26/2018 9:20a [facility] Kenneth SantosNan Mark, R53.83 Other fatigue M.D. R05 Cough Office Visit 11/16/2017 11:20a [facility] Sravanthi Oconnor, I10 Essential (primary) M.D. hypertension N95.1 Menopausal and female climacteric states Z85.3 Personal history of malignant neoplasm of breast K21.9 Gastro-esophageal reflux disease without esophagitis R73.01 Impaired fasting glucose Office Visit 09/08/2017 [facility] Office [place] Plaza J01.00 Acute maxillary 4:10p MD Seda sinusitis, unspecified Office Visit 08/17/2017 [facility] Sravanthi Oconnor, Z00.00 Encntr for 2:20p Office M.DNan general adult medical exam w/o abnormal findings N95.1 Menopausal and female climacteric states Z85.3 Personal history of malignant neoplasm of breast I10 Essential (primary) hypertension K21.9 Gastro-esophageal reflux disease without esophagitis H91.93 Unspecified hearing loss, bilateral N39.46 Mixed incontinence Plan of Treatment Future Appointment(s):01/02/2019 1:40 pm - Sravanthi Oconnor M.D. at [facility]/2019 - Sravanthi Oconnor M.D.Z00.00 Encounter for general adult medical examination without abnoComments:Encourage an active and healthy lifestyle with proper eating habits including fruits, vegetables, 6-8 glasses of water a day and monitoring portion size. Recommend 30 minutes of daily physical activityincluding walking, aerobic exercise, sports, yoga or dance. Any activity is better than no activity.Recommend routine eye and dental exams. Next physical is due in 1-2 years.I10 Essential (primary) hypertensionComments: The patient will continue to monitor blood pressure and let me know the blood pressure results if there are readings persistently above 140/90. Goal blood pressure is less than 130/80. Recommend low salt/cardiac diet such as the Mediterranean diet and routine exercise at least 30 minutes a day. refer cardiology possible PFO seen on echoR73.01 Impaired fasting glucoseComments: Counseled on heart healthy diet and exercise including limiting carbs and portion control and at least 30 minutes of physical activity daily. Consider Mediterranean diet as a guide for healthy eating. A1c> 6.5 is diagnostic of lnvvxqchW89.109 Migraine with aura, not intractable, without status migrainoComments:Reviewed adverse side effects of medication. Advised to call the office if experiencing symptoms. Patient verbalized understanding. trial of imitrex and propranolol for migraine ; monitor for low bpZ85.3 Personal history of malignant neoplasm of breastComments:gets routine mammogram due FALLE66.9 Obesity, unspecifiedComments:Counseled on heart healthy diet such as Mediterranean diet. Eat protein and vegetables first then carbohydrates last. Get at least 150 minutes of moderate aerobic activity or 75 minutes of vigorous aerobic activity a week, or a combination of moderate and vigorous activity. General goal of 30 minutes of physical activity a day.Z12.11 Encounter for screening for malignant neoplasm of colonComments:refer for colonoscopy thinks dueH91.93 Unspecified hearing loss, bilateralComments:refer for hearing evaluationAllNew Medication:Atorvastatin Calcium 20 mg - 1 by mouth every dayAmlodipine Besylate 10 mg - 1 by mouth every daySumatriptan Succinate 50 mg - take one tablet by mouth at the onset of migraine. may repeat dose in two hours as neededComments:~B_~U_Medication Management~b_~u_ Patient Understands medications she's taking? Yes No Are there Barriers to Adherence? Yes No Has the patient been asked about herbal supplements and therapies, and OTC meds? Yes No
--- OUTSIDE RECORDS SUMMARY | 2018-10-24 04:32 | XMS REPORT | Continuity of Care Document ---
:1945 External Reference #:[id number] Author Name Adriana Hernandez Care Team Providers Name Role Phone Sravanthi Oconnor MD Primary Care Physician Unavailable Payers Date Identification Numbers Payment Provider Subscriber Effective: 2007 Policy Number: [id number] [facility] Abhijit Root [place] Expires: 2015 PayID: [id number] [address] [address] [place] Jorge [address] Policy Number: [id number] Medicare Blue Ppo Lauren Crawford PayID: [id number] [address] [address] [place] Gomez [address] Advance Directives Description No Information Available Problems Date Description Provider Status Onset: 07/13/2016 Chest pain Emilie John MD, [facility] Active Family History Date Family Member(s) Observation Comments General Diabetes General Cancer General Hypertension General Kidney Disease Father due to Cancer () - stomach/brain Mother Atrial Fibrillation Mother Cerebrovascular Accident (CVA) Social History Type Date Description Comments Sex Unknown Marital Status Occupation Retired Tobacco Use Start: Unknown End: Former Cigarette Smoker Unknown Smoking Status Reviewed: 06/20/18 Former Cigarette Smoker ETOH Use Consumes 2 glasses of wine per week Tobacco Use Start: Unknown End: Patient is a former smoked 1PPD for Unknown smoker 15yrs Recreational Drug Use Denies Drug Use Exercise Type/Frequency Does not exercise Allergies, Adverse Reactions, Alerts Description No Known Drug Allergies Medications Medication Date Status Form Strength Qnty SIG Indications Ordering Provider Paxil Active Tablets 20mg 1 by Unknown 0 mouth every day Nadolol Active Tablets 20mg 1 by Unknown 0 mouth every day Triamterene/Hy Active Tablets 37.5-25mg 1 by Unknown drochlorothiaz 0 mouth behzad every day Omeprazole Active Capsules 20mg [address] mouth every day Promethazine Active Tablets 25mg 1 by Unknown HCL 0 mouth every 8 hours as needed nausea with headache Aspirin Adult Active Tablets DR 81mg 1 by Unknown Low Dose 0 mouth every day Tolterodine Hx Caps ER 4mg 1 po Unknown Tartrate ER 0 - 24HR daily 6 Loratadine Hx Tablets 10mg 1 by Unknown 0 - mouth Unknown every day prn Ipratropium Hx Solution 0.06% 2 sprays Unknown Topmost 0 - in each Unknown nostril 2 times a day Immunizations Description No Information Available Vital Signs Date Vital Result Comment 06/20/2018 9:51am Height 65 inches 5'5" Weight 190.00 lb Heart Rate 68 /min BP Systolic 120 mmHg BP Diastolic 76 mmHg Respiratory Rate 16 /min Body Temperature 97.8 F BMI (Body Mass Index) 31.6 kg/m2 07/13/2016 3:30pm Height 65 inches 5'5" Weight 186.00 lb Heart Rate 64 /min 76 BP Systolic 142 mmHg right arm, reg cuff BP Diastolic 78 mmHg right arm, reg cuff BP Systolic Sitting 140 mmHg left arm, reg cuff BP Diastolic Sitting 82 mmHg left arm, reg cuff BP Systolic Standing 122 mmHg left arm, reg cuff BP Diastolic Standing 76 mmHg left arm, reg cuff Respiratory Rate 16 /min BMI (Body Mass Index) 30.9 kg/m2 Results Description No Information Available Procedures Date Code Description Status 09/28/2018 58051 ECHO Transthorasic Realtime 2D W Doppler & Color Flow Hosp Completed 09/28/2018 66664 ECHO Transthorasic Realtime 2D W Doppler & Color Flow Hosp Completed 07/13/2016 64232 EKG Tracing & Interpretation Completed 02/28/2008 77628 Color Doppler Completed 02/28/2008 34852 Color Doppler Completed 02/28/2008 18043 Pulse Doppler & Continuous Wave Completed 02/28/2008 92990 Pulse Doppler & Continuous Wave Completed 02/28/2008 91005 Pulse Doppler & Continuous Wave Completed 02/28/2008 02228 Echocardiogram Completed 02/28/2008 71229 Echocardiogram Completed 02/24/2008 65576 ECHO/Stress Completed 02/24/2008 43650 Stress Test Completed 02/24/2008 73240 Stress Test Completed Encounters Type Date Location Provider Dx Diagnosis Office Visit 09/28/2018 [facility] Ori Oconnor, I16.0 Hypertensive 10:28a abhi Banuelos M.D. [facility] G43.909 Migraine, unsp, not intractable, without status migrainosus Office Visit 09/27/2018 10:28a [facility] Ori I16.0 Hypertensive abhi Banuelos M.D. [facility] R47.81 Slurred speech R47.01 Aphasia R51 Headache Office Visit 06/20/2018 9:45a Surgical Karthik Dobbs K43.9 [facility] MD Jami, without FACS obstruction or gangrene Office Visit 07/13/2016 3:00p [facility] Emilie Plaza R07.9 Chest pain, [facility] MD Alvaro, unspecified FACC, FSCAI R00.2 Palpitations I10 Essential (primary) hypertension Plan of Treatment Future Appointment(s):10/24/2018 3:40 pm - Karthik De León, DO FACC at [facility]06/20/2018 - Karthik Farrell MD, FACSK43.9 Ventral hernia without obstruction or gangreneComments:Diagnostic laparoscopy, possible ventral hernia repair with mesh. I outlined the details of the procedure, going over the risks, benefits, and alternatives. We spoke of the alternatives of watchful waiting and reevaluating over time. Patient wishes to proceed with intervention. We spoke about possible complications which included not limited to bleeding infection recurrence, negative identification hernia, and need for additional procedures.Follow up:operating room
[2018-10-24] MEDS ORDERED: Al Hydrox/Mg Hydrox/Simet LIQ* 30 ML UDC PO ONE (04:55)
[2018-10-24] MEDS ORDERED: Lidocaine 2% VISCOUS* 15 ML UDC PO ONE (04:55)
[2018-10-24] MEDS ORDERED: Pantoprazole IV* 40 MG IV ONE (04:56)
--- NOTE | 2018-10-24 04:58 | ED ---
HPI Chest Pain - HPI Summary HPI Summary: Pt is a 73 y/o F presenting to the ED with a chief complaint of chest pain onset about two days ago located in her mid-sternum that radiates through her jaw. It usually lasts 1-2 minutes when she experiences it, and she reports an associated hx of hiatal hernia. She denies nausea, vomiting, sob, or diaphoresis. - History of Current Complaint Chief Complaint: EDChestPainROMI Time Seen by Provider: 10/24/18 04:30 Hx Obtained From: Patient Onset/Duration: Started Days Ago, Still Present Timing: Intermittent, Lasting Minutes Initial Severity: Severe Current Severity: Severe Pain Intensity: 8 Pain Scale Used: 0-10 Numeric Chest Pain Location: Upper Sternal Chest Pain Radiates: Yes Chest Pain Radiates To:: Jaw Character: Sharp/Stabbing Aggravating Factor(s): Nothing Alleviating Factor(s): Other: - movement helps Associated Signs and Symptoms: Positive: Chest Pain. Negative: Shortness of Breath, Diaphoresis, Nausea, Vomiting - Additional Pertinent History Primary Care Physician: FLOWER - Allergy/Home Medications Allergies/Adverse Reactions: Allergies Allergy/AdvReac Type Severity Reaction Status Date / Time peanut Allergy Swelling Verified 09/13/18 17:58 Of Face,Lips,& Throat Penicillins Allergy Hives Verified 05/23/18 04:25 PMH/Surg Hx/FS Hx/Imm Hx Previously Healthy: Yes Endocrine/Hematology History: Denies: Hx Diabetes Cardiovascular History: Reports: Hx Hypertension - CONTROLLED Denies: Hx Congestive Heart Failure, Hx Pacemaker/ICD GI History: Reports: Hx Irritable Bowel Comment Only: Other GI Disorders - TUMMY TUCK FOR BREAST RECONSTRUCTION History: Denies: Hx Renal Disease Sensory History: Reports: Hx Contacts or Glasses, Hx Vision Problem Denies: Hx Cataracts, Hx Eye Injury, Hx Eye Prosthesis, Hx Glaucoma, Hx Legally Blind, Hx Macular Degeneration, Hx Deafness, Hx Hearing Aid, Hx Hearing Problem Opthamlomology History: Reports: Hx Contacts or Glasses, Hx Vision Problem Denies: Hx Cataracts, Hx Eye Injury, Hx Eye Prosthesis, Hx Glaucoma, Hx Legally Blind, Hx Macular Degeneration Neurological History: Reports: Hx Headaches, Hx Migraine Denies: Hx Dementia Psychiatric History: Denies: Hx Autism, Hx Panic Disorder - Cancer History Cancer Type, Location and Year: RT BREAST CA Hx Chemotherapy: No Hx Radiation Therapy: No - Surgical History Surgery Procedure, Year, and Place: RT SIDED BREAST SURGERY/TUMMY TUCK - Immunization History Date of Tetanus Vaccine: utd Date of Influenza Vaccine: fall 2017 Infectious Disease History: No Infectious Disease History: Denies: Hx Clostridium Difficile, Hx Hepatitis, Hx of Known/Suspected MRSA, Hx Shingles, Hx Tuberculosis, Hx Known/Suspected VRE, Hx Known/Suspected VRSA, Traveled Outside the [place] in Last 30 Days - Family History Known Family History: Negative: Other - neg Breast CA - Social History Alcohol Use: Occasionally Hx Substance Use: No Substance Use Type: Reports: None Hx Tobacco Use: Yes Smoking Status (MU): Former Smoker Review of Systems Negative: Skin Diaphoresis Positive: Chest Pain Negative: Shortness Of Breath Negative: Vomiting, Nausea All Other Systems Reviewed And Are Negative: Yes Physical Exam - Summary Physical Exam Summary: VITAL SIGNS: Reviewed. GENERAL: Patient is a well-developed and nourished female who is lying comfortable in the stretcher. Patient is not in any acute respiratory distress. HEAD AND FACE: No signs of trauma. No ecchymosis, hematomas or skull depressions. No sinus tenderness. EYES: PERRLA, EOMI x 2, No injected conjunctiva, no nystagmus. EARS: Hearing grossly intact. Ear canals and tympanic membranes are within normal limits. MOUTH: Oropharynx within normal limits. NECK: Supple, trachea is midline, no adenopathy, no JVD, no carotid bruit, no c- spine tenderness, neck with full ROM. CHEST: Symmetric, no tenderness at palpation LUNGS: Clear to auscultation bilaterally. No wheezing or crackles. CVS: Regular rate and rhythm, S1 and S2 present, no murmurs or gallops appreciated. ABDOMEN: Epigastric tenderness. No signs of distention. No rebound no guarding, and no masses palpated. Bowel sounds are normal. EXTREMITIES: FROM in all major joints, no edema, no cyanosis or clubbing. NEURO: Alert and oriented x 3. No acute neurological deficits. Speech is normal and follows commands. SKIN: Dry and warm Triage Information Reviewed: Yes Vital Signs On Initial Exam: Initial Vitals Temp Pulse Resp BP Pulse Ox 98.5 F 64 18 170/79 98 10/24/18 04:16 10/24/18 04:16 10/24/18 04:16 10/24/18 04:16 10/24/18 04:16 Vital Signs Reviewed: Yes Diagnostics - Vital Signs Vital Signs Temp Pulse Resp BP Pulse Ox 10/24/18 04:16 98.5 F 64 18 170/79 98 - Laboratory Result Diagrams: 10/24/18 05:10 10/24/18 05:10 Lab Statement: Any lab studies that have been ordered have been reviewed, and results considered in the medical decision making process. - Radiology CXR Radiology Interpretation Completed By: ED Physician Summary of Radiographic Findings: No acute process. Pending official radiology report. - EKG 425 Cardiac Rate: Bradycardia - 59bpm EKG Rhythm: Sinus Bradycardia ST Segment: Normal Ectopy: None Re-Evaluation - Re-Evaluation 1st re-eval Re-Evaluation Time: 06:30 Change: Improved Comment: The pt reports feeling better after receiving her medicine. Second troponin still pending. Chest Pain Course/Dx - Course Course Of Treatment: Pt is a 73 y/o F presenting to the ED with a chief complaint of chest pain onset about two days ago located in her mid-sternum that radiates through her jaw. It usually lasts 1-2 minutes when she experiences it, and she reports an associated hx of hiatal hernia. She denies nausea, vomiting, sob, or diaphoresis. An EKG at 6 shows sinus bradycardia at 59bpm, otherwise normal. CXR shows no acute process, pending official radiology report. As of 629, the pt reports feeling better after her medication. She will be signed out to Dr. Mcfadden pending second troponin results. - Diagnoses Provider Diagnoses: Chest pain Discharge - Sign-Out/Discharge Documenting (check all that apply): Patient Departure, Sign-Out Patient Signing out patient TO: Ryan Mcfadden - Discharge Plan Condition: Stable Referrals: Sravanthi Oconnor MD [Primary Care Provider] - - Attestation Statements Document Initiated by Scribe: Yes Documenting Scribe: Kacie Haskins Provider For Whom Mary is Documenting (Include Credential): Nikki Snow MD. Scribe Attestation: Kacie Jauregui, scribed for Nikki Snow MD. on 10/24/18 at 0633. Status of Scribe Document: Ready
[2018-10-24 05:19] LABS: ABS Basophils 0 10^3/ul (0-0.2); ABS Eosinophils 0.2 10^3/ul (0-0.6); ABS Lymphocytes 1.6 10^3/ul (1.0-4.8); ABS Monocytes 0.5 10^3/ul (0-0.8); ABS Neutrophils 4.3 10^3/ul (1.5-7.7); ABS Nucleated RBC 0 10^3/ul; Eosinophil % 2.3 %; Hematocrit 40 % (33-41); Hemoglobin 13.9 g/dL (12.0-16.0); Lymphocyte % 24.7 %; Mean Corpuscular HGB Conc 35 g/dL (31-36); Mean Corpuscular Hemoglobin 30 pg (27-31); Mean Corpuscular Volume 85 fL (80-97); Mean Platelet Volume 10.4 fL (7.4-10.4); Nucleated Red Blood Cells % 0; Platelet Count 169 10^3/uL (150-450); Red Cell Distribution Width 14 % (10.5-15); White Blood Count 6.6 10^3/uL (3.5-10.8)
[2018-10-24 05:26] LABS: Activated Partial Thrombo Time 31.8 seconds (26.0-36.3); INR 0.9 (0.77-1.02)
[2018-10-24 05:37] LABS: Albumin 4.3 g/dL (3.2-5.2); Albumin/Globulin Ratio 1.5 (1-3); BUN/Creatinine Ratio 21.1 (8-20); Calcium 9.2 mg/dL (8.6-10.3); EGFR African American 74.1 (>60); EGFR Non-African American 61.2 (>60); Globulin 2.8 g/dL (2-4); Magnesium 1.7 mg/dL (1.9-2.7); Potassium 3.6 mmol/L (3.5-5.0); Total Bilirubin 0.7 mg/dL (0.2-1.0); Total Protein 7.1 g/dL (6.4-8.9)
--- NOTE | 2018-10-24 07:20 | ED ---
Progress - Progress Note Progress Note: This pt was signed out by Dr. Snow at shift change, pending disposition, awaiting second troponin. Course/Dx - Diagnoses Provider Diagnoses: Chest pain Discharge - Sign-Out/Discharge Documenting (check all that apply): Receiving Sign-Out Receiving patient FROM: Nikki Snow Patient Received Moderate/Deep Sedation with Procedure: No - Discharge Plan Condition: Stable Referrals: Sravanthi Oconnor MD [Primary Care Provider] - - Attestation Statements Document Initiated by Scribe: Yes Documenting Scribe: Esperanza Lindo Provider For Whom Scribe is Documenting (Include Credential): Ryan Mcfadden MD Scribe Attestation: Esperanza Jauregui, scribed for Ryan Mcfadden MD on 10/24/18 at 0719. Status of Scribe Document: Viewed
[2018-10-24 08:37] VITALS: BP 142/73
--- NOTE | 2018-10-24 08:37 | ED ---
Progress - Progress Note Progress Note: PREVIOUS CHART SIGNED BY LULYAKE This pt was signed out by Dr. Snow at shift change, pending disposition, awaiting second troponin. Re-Evaluation - Re-Evaluation 1st re-eval Re-Evaluation Time: 06:30 Change: Improved Comment: The pt reports feeling better after receiving her medicine. Second troponin still pending. Course/Dx - Course Course Of Treatment: This patient is a 73-year-old female who was signed out by Dr. Snow at shift change. He requested to check the second troponin and if negative the patient can be discharged home with follow-up with the primary care physician. Second troponin is 0.01 therefore it is negative. The patient is asymptomatic. Therefore the patient was discharged home with follow-up from PCP. I discussed all the findings and test results with the patient. Patient was instructed to return to the emergency room immediately if any of the symptoms return worsens. Plan of care was discussed with the patient and understands and agrees. All questions were answered at patient satisfaction. There were no further complaints or concerns. Lung exam before discharge: CTA B/ L. Good air exchange. No wheezing or crackles heard. CVS: S1 and S2 present. No murmurs appreciated. Patient is alert and oriented x 3. Patient is hemodynamically stable. Patient will be discharged home with follow up from her PCP in the next 2-3 days. - Diagnoses Provider Diagnoses: Chest pain Discharge - Sign-Out/Discharge Documenting (check all that apply): Patient Departure - Discharge home, Receiving Sign-Out Receiving patient FROM: Nikki Snow Patient Received Moderate/Deep Sedation with Procedure: No - Discharge Plan Condition: Stable Disposition: HOME Patient Education Materials: Chest Pain (ED) Referrals: Sravanthi Oconnor MD [Primary Care Provider] - Additional Instructions: FOLLOW UP WITH YOUR PRIMARY CARE PROVIDER IN 2-3 DAYS. RETURN TO THE EMERGENCY DEPARTMENT FOR ANY WORSENING OR NEW SYMPTOMS. - Billing Disposition and Condition Condition: STABLE Disposition: Home - Attestation Statements Document Initiated by Scribe: Yes Documenting Scribe: Esperanza Lindo Provider For Whom Scribe is Documenting (Include Credential): Ryan Mcfadden MD Scribe Attestation: Esperanza Jauregui, scribed for Ryan Mcfadden MD on 10/24/18 at 1825. Scribe Documentation Reviewed: Yes Provider Attestation: The documentation as recorded by the scribe, Esperanza Lindo accurately reflects the service I personally performed and the decisions made by me, Ryan Mcfadden MD Status of Scribe Document: Viewed
== END 2018-10-24 08:56 | disposition home or self-care (01) ==
LOC: ED 04:15
DX: R07.2 Precordial pain (principal); R00.1 Bradycardia, unspecified; K44.9 Diaphragmatic hernia without obstruction or gangrene; I10 Essential (primary) hypertension; Z88.0 Allergy status to penicillin; Z91.010 Allergy to peanuts; Z87.891 Personal history of nicotine dependence
CPT/HCPCS: 36415; 71045; 80053; 82150; 83605; 83690; 83735; 83880; 84484; 85025; 85610; 85730; 93005; 96374; 99283; A9270-GY

== ENCOUNTER 2018-11-14 08:19 | Observation (INO) | payer MEDICARE ==
[2018-11-14] MEDS ORDERED: Diazepam TAB(*) 5 MG ONE (09:58)
[2018-11-14] MEDS ORDERED: diPHENhydraMINE PO* 25 MG ONE (09:58)
[2018-11-14] MEDS ORDERED: Aspirin 81 mg CHEW TAB* 81 MG TAB.CHEW ONE (09:58)
[2018-11-14] MEDS ORDERED: Midazolam* 1 MG/ML 5 ML VIAL (5 MG) ONE (10:23)
[2018-11-14] MEDS ORDERED: fentaNYL* 50 MCG/ML 2 ML VIAL (100 MCG VIAL) ONE (10:23)
[2018-11-14] MEDS ORDERED: VERAPAMIL 2.5 MG/ML 2 ML VIAL ** 5 mg/2 ml ONE (10:23)
[2018-11-14] MEDS ORDERED: Heparin(*) 1000 UNIT/ML 10 ML VIAL CATH LAB IV ONE (10:23)
[2018-11-14] MEDS ORDERED: Lidocaine 1% INJ* 10 MG/ML 30 ML SDV ONE (10:24)
[2018-11-14] MEDS ORDERED: nitroGLYCERIN DRIP* 25,000 MCG/250 ML BTL ONE ×2 (10:24→11:29)
[2018-11-14] MEDS ORDERED: Iohexol 350 (CONTRAST) 200 ML MDV IV ONE ×2 (10:24→10:25)
[2018-11-14] MEDS ORDERED: Bivalirudin(*) 250 MG VIAL ONE (11:11)
[2018-11-14] MEDS ORDERED: Ticagrelor* 90 MG TAB PO ONE (11:12)
[2018-11-14] MEDS ORDERED: Heparin 2 UNITS/ML IVPREMIX* 2,000 UNIT/1,000 ML BAG IV ONE (11:12)
[2018-11-14] MEDS ORDERED: Zolpidem TAB* 5 MG PO PRN (11:47)
[2018-11-14] MEDS ORDERED: Atorvastatin* 80 MG TAB PO ONE (11:47)
[2018-11-14] MEDS ORDERED: Ondansetron INJ* 2 MG/ML VIAL IV PRN (11:47)
[2018-11-14] MEDS ORDERED: Docusate CAP* 100 MG PO PRN (11:47)
[2018-11-14] MEDS ORDERED: Nitroglycerin TAB 0.4 MG* 0.4 MG TAB SL PRN (11:47)
[2018-11-14] MEDS ORDERED: Acetaminophen TAB* 325 MG PO PRN (11:47)
[2018-11-14] MEDS ORDERED: SUMAtriptan TAB* 50 MG PO PRN (11:57)
[2018-11-14] MEDS ORDERED: Furosemide TAB* 20 MG PO PRN (11:57)
[2018-11-14] MEDS ORDERED: NS 0.9% 1000 ML** 1,000 ML IV SCH (12:00)
[2018-11-14] MEDS: Propranolol TAB* 40 MG PO SCH (21:01)
[2018-11-14] MEDS: Ticagrelor* 90 MG TAB PO SCH (21:01)
--- NOTE | 2018-11-15 03:01 | CATH ---
CC: Karthik De León DO; Dr. Oconnor at [facility]; Dr. Malik.* CARDIAC CATHETERIZATION REPORT: DATE OF PROCEDURE: 11/14/18 PROCEDURES: Cardiac catheterization including coronary angiography, left heart catheterization, left ventriculogram. INDICATION FOR PROCEDURE: The patient is a 73-year-old female with a history of hypertension, who has been having increasing dyspnea on exertion. The patient underwent an exercise nuclear stress test with Dr. De León. During the stress test patient had severe chest pain. She had [address] segment depression. She did not reach target heart rate, so her stress test was converted to a Lexiscan Myoview stress test. Her nuclear image was reported as no areas of ischemia. My personal review of the nuclear images did show mild anterior wall ischemia. Cardiac catheterization was recommended. DESCRIPTION OF PROCEDURE: The patient was brought to the cardiac catheterization lab in a fasting state. Informed consent had been obtained prior to the procedure. All labs were reviewed. The patient was placed supine on the procedure table. Her right radial area was prepped and draped in usual fashion. 1% lidocaine was used for local anesthesia. Using a Seldinger technique, the radial artery was entered and a guidewire was placed. Over the guidewire, a 6-Slovak hydrophilic sheath was placed and infusion of verapamil, nitroglycerin, and heparin was given through the sheath itself. The patient underwent coronary angiography using a 5-Slovak pigtail catheter and a 5-Slovak pigtail catheter. At the end of the procedure, patient went on to angioplasty and stenting of her proximal LAD by Dr. Malik. Please see his notes for details. The patient had a total of 65 cc of contrast and 3 minutes of fluoro time. FINDINGS: 1. Left main: The left main was normal in size that bifurcated into the LAD and circumflex. There was no evidence of stenosis. 2. Left anterior descending artery: The LAD was normal in size. It gave off 2 diagonal branches. The proximal LAD had an eccentric 80% stenosis. The mid LAD had an eccentric 40% stenosis. The remainder of the LAD was without disease. The diagonal vessels were without disease. 3. Left circumflex artery: The circumflex artery was normal is size. It gave off 2 obtuse marginal branches. The distal left circumflex artery had a 30% stenosis. 4. The right coronary artery: The RCA was normal in size. It gave off the PDA and 1 posterolateral branch. The proximal right coronary artery had an eccentric 30% stenosis. The remainder of the vessel and the PDA, the posterolateral branch were without disease. 5. Left ventriculogram: The left ventricle was normal in size, and systolic function. Estimated ejection fraction 60 %. There was no mitral regurgitation. Ascending aorta and aortic valve were normal. HEMODYNAMICS: Central aortic blood pressure 154/65 with a mean of 104. Left ventricular pressure 154/8 with an end-diastolic pressure of 24. IMPRESSION: 1. Normal left ventricular in size and systolic function. 2. 80% stenosis of the proximal left anterior descending. 3. Noncritical stenosis to the mid left anterior descending, distal left circumflex artery and proximal right coronary artery. RECOMMENDATION: The patient will undergo angioplasty and stenting of her proximal LAD with Dr. Malik. [id number]/[facility] #: [id number] VERNA
[2018-11-15 06:25] LABS: Hematocrit 40 % (33-41); Hemoglobin 13.7 g/dL (12.0-16.0); Mean Corpuscular HGB Conc 35 g/dL (31-36); Mean Corpuscular Hemoglobin 30 pg (27-31); Mean Corpuscular Volume 85 fL (80-97); Mean Platelet Volume 11.2 fL (7.4-10.4); Platelet Count 166 10^3/uL (150-450); Red Blood Count 4.64 10^6 /uL (3.70-4.87); Red Cell Distribution Width 14 % (10.5-15); White Blood Count 5.5 10^3/uL (3.5-10.8)
[2018-11-15 06:56] LABS: BUN/Creatinine Ratio 15.9 (8-20); Calcium 9.2 mg/dL (8.6-10.3); EGFR African American 82.5 (>60); EGFR Non-African American 68.1 (>60); Potassium 3.1 mmol/L (3.5-5.0)
[2018-11-15 07:35] LABS: ABS Basophils 0 10^3/ul (0-0.2); ABS Eosinophils 0.2 10^3/ul (0-0.6); ABS Lymphocytes 1.3 10^3/ul (1.0-4.8); ABS Monocytes 0.5 10^3/ul (0-0.8); ABS Neutrophils 3.5 10^3/ul (1.5-7.7); ABS Nucleated RBC 0 10^3/ul; Eosinophil % 3.3 %; Lymphocyte % 23.3 %; Nucleated Red Blood Cells % 0.1
[2018-11-15] MEDS: Ticagrelor* 90 MG TAB PO SCH (08:07)
[2018-11-15] MEDS: Propranolol TAB* 40 MG PO SCH (08:08)
[2018-11-15] MEDS ORDERED: Potassium Chlor TAB* 20 MEQ TAB.ER PO ONE (08:15)
--- NOTE | 2018-11-15 08:27 | CATH ---
"*[facility]* [place] [address] Main: [phone] [email or web address] Cardiac Catheterization Patient: Lauren Crawford : 1945 Accession#: Age: 73 Account#: Gender: F Study Date/Time: Nov 14 2018 10:08AM Pipe Liner: Sukhdeep Malik Interventional Physician: Sukhdeep Malik Ordering Physician: Rasheed Evans Procedures performed: - Percutaneous intervention on the 80% stenosis in the proximal LAD. Stent placement. Balloon angioplasty. Summary: LAD: Proximal vessel lesion: The diagnostic study demonstrated a 16 mm (L)long diseased segment with a focal area of 80% stenosis. The lesion is a likely culprit for the patient's clinical presentation. The lesion presents an ACC/AHA type A/B "low/moderate risk" lesion for intervention. Stent placement was performed (see 1st lesion intervention). Following intervention, there is a residual 0% stenosis with no evidence of thrombus and ANY grade 3 flow (brisk flow). History: Risk factors: Hypertension. Dyslipidemia. Family history is significant for coronary artery disease. Medications: The patient received antianginal therapy in the last two weeks, including: beta blockers and calcium channel blockers. Labs, prior tests, procedures, and surgery: Stress myocardial perfusion imaging. Abnormal. High risk of ischemia. Blood tests: International normalized ratio (INR) of 0.98. Partial thromboplastin time (PTT) of 32 sec. Serum potassium (K) of 3.9 mEq/l. Serum sodium (Na) of 141 mEq/l. Serum creatinine (current admission) of 0.82 mg/dl. Blood urea nitrogen of 16 mg/dl. Glucose of 77 mg/dl. Platelet count of 198 th/ul. White blood cell count (WBC) of 0.01 th/ul. Red blood cell count (RBC) of 4530 th/ul. Hematocrit of 39 %. Hemoglobin (pre-procedure) of 13.6 g/dl. Study data: Study status: Cardiac cath: elective. Percutaneous coronary intervention: elective. Stable angina, Class III on 2drug antianginal therapy with continued symptoms and abnormal high risk Wiseman score EKG portion of stress test. Location: Catheterization laboratory. Consent: The risks, benefits, and alternatives to the procedure were explained to the patient and/or their healthcare customer solutions representative and written informed consent was obtained. All available pre-procedure labs were reviewed. Height: 1.7 cm. 0.7 in. Weight: 81.6 kg. 179.5 lb. Body surface area: 1.96 m^2. Body mass index: 30 kg/m^2. Study completion: Minimal estimated blood loss. All catheters inserted during the procedure were removed. There were no apparent complications. Administered medications: BRILINTA (Ticagrelor), 180mg, PO. Bivalirudin (Angiomax), 12.27ml, bolus plus infusion, at a rate of 1.75mg/kg/hr, IV. (IC) NITROGLYCERIN, 100mcg, into the coronary artery. Nitroglycerin, infusion, at a rate of 2mcg/min, IV. Contrast: Iohexal [Omnipaque] 65 ml (total dose). Iohexal [Omnipaque] 270 ml (wasted). Radiation: Fluoroscopy dose: 149.2 cGy. Discharge: The patient tolerated the procedure well and was discharged from the lab in stable condition. Interventional narrative: 1st lesion intervention: Percutaneous intervention on the 80% stenosis in the proximal LAD. 1. Guider placement: a VL3.5 Runway Guide 6F guiding catheter was placed. 2. A 190cm BMW Guide wire was placed across the lesion. 3. Stent placement. A 3 mm (D) x 20 mm (L), Synergy MR stent was used. The stent was advanced across the lesion and deployed with a single inflation and a maximum pressure of 12 christoph. 4. Balloon angioplasty. A 3 mm (D) x 12 mm (L), NC Emerge balloon was employed. The balloon was placed across the lesion and given two inflations with a maximum inflation pressure of 15 christoph. Findings Coronary arteries: LAD: Proximal vessel lesion: The diagnostic study demonstrated a 16 mm (L)long diseased segment with a focal area of 80% stenosis. There is no evidence of thrombus. It is not a bifurcation lesion. There is ANY grade 3 flow (brisk flow) across the lesion. The lesion is a likely culprit for the patient's clinical presentation. The lesion presents an ACC/AHA type A/B "low/moderate risk" lesion for intervention. Stent placement was performed (see 1st lesion intervention). Following intervention, there is a residual 0% stenosis with no evidence of thrombus and ANY grade 3 flow (brisk flow). Hemodynamics: + + + |Stage description |Condition 1 - | + + + |LV pressure s/d, ed |148/1, 17, dP/xf=5901 mm Hg/s| + + + |Arterial pressure s/d (m)|137/56 (88) | + + + Prepared and electronically signed by Sukhdeep Malik 11/15/2018 08:26"
--- NOTE | 2018-11-15 08:33 | PN ---
<CesiliaRenetta - Last Filed: 11/15/18 08:23> Subjective Date of Service: 11/15/18 - s/p abnormal stress test that resulted in SOLE/LAD Interval History: No events last night. Patient states she has a sensation of not being able to get a deep breath. Otherwise has no other complaints of chest pain, palpitations , sensation of heart racing, edema or dizziness. She has not ambulated the halls as of yet but that is a goal for today. Medications Active Medications: Acetaminophen (Tylenol Tab*) 650 mg PO Q4H PRN PRN Reason: HEADACHE/PAIN Last Admin: 11/14/18 18:45 Dose: 650 mg Amlodipine Besylate (Norvasc Tab*) 10 mg PO DAILY [facility] Last Admin: 11/15/18 08:08 Dose: 10 mg Aspirin (Aspirin 81 Mg Chew Tab*) 81 mg PO DAILY [facility] Last Admin: 11/15/18 08:08 Dose: 81 mg Atorvastatin Calcium (Lipitor*) 80 mg PO 2100 [facility] Cholecalciferol (Vitamin D Tab*) 2,000 units PO DAILY [facility] Last Admin: 11/15/18 08:07 Dose: 2,000 units Docusate Sodium (Colace Cap*) 100 mg PO DAILY PRN PRN Reason: CONSTIPATION Furosemide (Lasix Tab*) 20 mg PO DAILY PRN PRN Reason: Edema Hydrochlorothiazide (Hydrodiuril Tab*) 25 mg PO DAILY [facility] Last Admin: 11/15/18 08:07 Dose: 25 mg Nitroglycerin (Nitroglycerin Tab 0.4 Mg*) 0.4 mg SL Q5M PRN PRN Reason: ANGINA Ondansetron HCl (Zofran Inj*) 4 mg IV Q4H PRN PRN Reason: NAUSEA Oxybutynin Chloride (Ditropan Xl Tab*) 5 mg PO DAILY [facility] Last Admin: 11/15/18 08:18 Dose: 5 mg Pantoprazole Sodium (Protonix Tab*) 40 mg PO DAILY [facility] Last Admin: 11/15/18 08:07 Dose: 40 mg Paroxetine HCl (Paxil Tab*) 20 mg PO DAILY [facility] Last Admin: 11/15/18 08:18 Dose: 20 mg Propranolol HCl (Inderal Tab*) 40 mg PO BID [facility] Last Admin: 11/15/18 08:08 Dose: 40 mg Sumatriptan Succinate (Imitrex Tab*) 50 mg PO DAILY PRN PRN Reason: MIGRAINE HEADACHE Ticagrelor (Brilinta*) 90 mg PO BID JENNY Last Admin: 11/15/18 08:07 Dose: 90 mg Zolpidem Tartrate (Ambien Tab*) 5 mg PO BEDTIME PRN PRN Reason: INSOMNIA Objective Vital Signs: Temp Pulse Resp BP Pulse Ox 98.8 F 59 20 159/67 96 11/15/18 07:47 11/15/18 07:00 11/15/18 07:25 11/15/18 07:00 11/15/18 07:00 Oxygen Devices in Use Now: None Appearance: well nourished, A+O x3 cooperative with exam. Ears/Nose/Mouth/Throat: NL Teeth, Lips, Gums, Mucous Membranes Moist Neck: NL Appearance and Movements; NL JVP Respiratory: Symmetrical Chest Expansion and Respiratory Effort Cardiovascular: NL Sounds; No Murmurs; No JVD, No Edema, - - right radial access site is intact, strong bounding pulse, non tender to palpation. Extremities: No Edema Skin: No Rash or Ulcers Neurological: Alert and Oriented x 3 Lines/Tubes/Other Access: Clean, Dry and Intact Peripheral IV Laboratory Results: 11/15/18 06:00 11/15/18 06:00 CK-MB (CK-2) 2.5 ng/mL (0.6-6.3) 11/14/18 20:08 Laboratory Results - last 24 hr 11/14/18 11/14/18 11/14/18 11:18 12:00 20:08 WBC RBC Hgb Hct MCV MCH MCHC RDW Plt Count MPV Neut % (Auto) Lymph % (Auto) [place] % (Auto) Eos % (Auto) Baso % (Auto) Absolute Neuts (auto) Absolute Lymphs (auto) Absolute Monos (auto) Absolute Eos (auto) Absolute Basos (auto) Absolute Nucleated RBC Nucleated RBC % POC Activ Clotting Time 196 Sodium Potassium Chloride Carbon Dioxide Anion Gap BUN Creatinine Est GFR ( Amer) Est GFR (Non-Af Amer) BUN/Creatinine Ratio Glucose Calcium CK-MB (CK-2) 3.1 2.5 11/15/18 11/15/18 06:00 06:00 WBC 5.5 RBC 4.64 Hgb 13.7 Hct 40 MCV 85 MCH 30 MCHC 35 RDW 14 Plt Count 166 MPV 11.2 H Neut % (Auto) 63.5 Lymph % (Auto) 23.3 [place] % (Auto) 9.5 Eos % (Auto) 3.3 Baso % (Auto) 0.4 Absolute Neuts (auto) 3.5 Absolute Lymphs (auto) 1.3 Absolute Monos (auto) 0.5 Absolute Eos (auto) 0.2 Absolute Basos (auto) 0 Absolute Nucleated RBC 0 Nucleated RBC % 0.1 POC Activ Clotting Time Sodium 140 Potassium 3.1 L Chloride 103 Carbon Dioxide 28 Anion Gap 9 BUN 13 Creatinine 0.82 Est GFR ( Amer) 82.5 Est GFR (Non-Af Amer) 68.1 BUN/Creatinine Ratio 15.9 Glucose 128 H Calcium 9.2 CK-MB (CK-2) Diagnostic Imaging: Cardiac Catheterization Report Patient: LYSSA STONE /Age: 01 1945 73 Medical Record#: [id number] Admission Date: 11/14/18 Provider: Rasheed Evans MD CC: Karthik De León DO; Dr. Oconnor at [facility]; Dr. Malik.* CARDIAC CATHETERIZATION REPORT: DATE OF PROCEDURE: 11/14/18 PROCEDURES: Cardiac catheterization including coronary angiography, left heart catheterization, left ventriculogram. INDICATION FOR PROCEDURE: The patient is a 73-year-old female with a history of hypertension, who has been having increasing dyspnea on exertion. The patient underwent an exercise nuclear stress test with Dr. De León. During the stress test patient had severe chest pain. She had [address] segment depression. She did not reach target heart rate, so her stress test was converted to a Lexiscan Myoview stress test. Her nuclear image was reported as no areas of ischemia. My personal review of the nuclear images did show mild anterior wall ischemia. Cardiac catheterization was recommended. DESCRIPTION OF PROCEDURE: The patient was brought to the cardiac catheterization lab in a fasting state. Informed consent had been obtained prior to the procedure. All labs were reviewed. The patient was placed supine on the procedure table. Her right radial area was prepped and draped in usual fashion. 1% lidocaine was used for local anesthesia. Using a Seldinger technique, the radial artery was entered and a guidewire was placed. Over the guidewire, a 6-Greenlandic hydrophilic sheath was placed and infusion of verapamil, nitroglycerin, and heparin was given through the sheath itself. The patient underwent coronary angiography using a 5 -Greenlandic pigtail catheter and a 5- Greenlandic pigtail catheter. At the end of the procedure, patient went on to angioplasty and stenting of her proximal LAD by Dr. Malik. Please see his notes for details. The patient had a total of 65 cc of contrast and 3 minutes of fluoro time. FINDINGS: 1. Left main: The left main was normal in size that bifurcated into the LAD and circumflex. There was no evidence of stenosis. 2. Left anterior descending artery: The LAD was normal in size. It gave off 2 diagonal branches. The proximal LAD had an eccentric 80% stenosis. The mid LAD had an eccentric 40% stenosis. The remainder of the LAD was without disease. The diagonal vessels were without disease. 3. Left circumflex artery: The circumflex artery was normal is size. It gave off 2 obtuse marginal branches. The distal left circumflex artery had a 30% stenosis. 4. The right coronary artery: The RCA was normal in size. It gave off the PDA and 1 posterolateral branch. The proximal right coronary artery had an eccentric 30% stenosis. The remainder of the vessel and the PDA, the posterolateral branch were without disease. 5. Left ventriculogram: The left ventricle was normal in size, and systolic function. Estimated ejection fraction 60 % . There was no mitral regurgitation. Ascending aorta and aortic valve were normal. This report is only to be considered final once signed by the Provider(s) as displayed in the "<Electronically Signed by >" field (s). Absence of a signature indicates the report is in a draft status and still needs to be finalized. In the event this document was created by someone other than the signing Provider, the individual initiating the document will be listed in the "Entered by:" or "Dictated by:" caro. 1 of 2 EKG Data: 11/15/2018; NSR rate 63 Telemetry reviewed; Sinus bradycardia rate 50-60's Assessment/Plan #1 c/o BRODERICK with abnormal stress test that revealed anterior wall ischemia per [facility] report. Patient underwent successful SOLE/LAD 11/14/18. She is doing well. She is c/o dyspnea I encouraged her to drink caffeine with Brilinta to alleviate sensation. Will continue ASA 81/day, Brilinta 90mg Po BID, Lipitor 80QHS, Propanolol therapy. She is to follow up with primary medical billing and coding instructor Dr. Guy De León on 11/22/2018 at 10am. No driving for 48 hours, no lifting more than 5-10lbs for 3-5 days. She should be sent home with free 30 day supply of Brilinta. She is aware to not take more than 81mg/day ASA in combination with Brilinta. #2 h/o HTN; BP controlled will continue current medication regimen. #3 h/o HLD; on high intensity statin therapy.Goal LDL < 70 given h/o CAD #4 Hypokalemia; Will replace with 40MEQ x1 #5 Disposition; pending course. Will sign off. D/W Dr. Boss who agrees with above assessment and plan. f.u appointment and restriction ( activity) placed in discharge information. Please call our service with any questions or concerns. Attending: Rasheed Evans <Rasheed Evans - Last Filed: 11/20/18 21:10> Objective Vital Signs: Temp Pulse Resp BP Pulse Ox 98.4 F 70 17 117/60 94 11/15/18 12:00 11/15/18 13:01 11/15/18 13:01 11/15/18 12:00 11/15/18 13:01 Laboratory Results: 11/15/18 06:00 11/15/18 06:00 CK-MB (CK-2) 2.5 ng/mL (0.6-6.3) 11/14/18 20:08 Assessment/Plan Points of Discussion: Patient seen and examined Pacer site stable. No Hematoma or erytherma. CXR stable PAcer check normal No fever VSS pacer instruction reviewed questions answered
[2018-11-15] MEDS ORDERED: Pantoprazole TAB * 40 MG TAB PO SCH (09:00)
[2018-11-15] MEDS ORDERED: Oxybutynin XL TAB* 5 MG PO SCH (09:00)
[2018-11-15] MEDS ORDERED: amLODIPine TAB* 5 MG PO SCH (09:00)
[2018-11-15] MEDS ORDERED: Hydrochlorothiazide TAB* 25 MG PO SCH (09:00)
[2018-11-15] MEDS ORDERED: Cholecalciferol TAB* 1000 UNITS PO SCH (09:00)
[2018-11-15] MEDS ORDERED: Aspirin 81 mg CHEW TAB* 81 MG TAB.CHEW PO SCH ×2 (09:00)
[2018-11-15] MEDS ORDERED: PARoxetine HCL TAB* 20 MG PO SCH (09:00)
[2018-11-15 13:14] VITALS: BP 117/60
--- NOTE | 2018-11-15 13:57 | CONSULT ---
<Renetta Lomas - Last Filed: 11/15/18 13:56> Cardiology Note Spoke to Dr. Evans, Patient to be discharged home. I spoke with outpatient pharmacy and free 30 day supply for Brilinta was already sent in. RN aware to d/ c patient home. <Rasheed Evans - Last Filed: 11/20/18 21:16> Cardiology Note Patient S/p cath and stent to LAD cath site stable no pain labs normal d/d instructions reviewed MDB
[2018-11-15] MEDS ORDERED: Atorvastatin* 80 MG TAB PO SCH (21:00)
--- NOTE | 2018-11-16 10:28 | DS ---
DISCHARGE SUMMARY: DATE OF ADMISSION: 11/14/18 DATE OF TENTATIVE DISCHARGE PENDING NO COMPLICATIONS: 11/15/18 ATTENDING PHYSICIAN: Rasheed Evans MD* (dictated by Renetta Lomas NP). PRIMARY SPECIALTY MANUFACTURING SUPERVISOR: Dr. Karthik De León. ADMITTING DIAGNOSES: 1. Abnormal stress test with mild anterior wall reversible ischemia. 2. History of hypertension. 3. History of hyperlipidemia. 4. History of migraines. DISCHARGE DIAGNOSES: 1. History of abnormal cardiovascular stress test that revealed reversible mild anterior wall ischemia, status post drug-eluting stent to LAD, on aspirin, Brilinta, now high-intensity statin therapy and propranolol therapy. 2. History of hyperlipidemia. Lipitor increased to 80 mg p.o. q.h.s. Will need repeat fasting lipid and hepatic function tests in 6 to 8 weeks' time. 3. History of hypertension, on propranolol and hydrochlorothiazide therapy. 4. Hypokalemia, potassium replaced today. We will order outpatient basic metabolic panel for next week. PROCEDURES PERFORMED: The patient had an elective left heart catheterization performed on 11/14/18, by Dr. Rasheed Evans. A 65 cc of contrast and 3 minutes of fluro time was utilized. 1. Left main. Normal in size that bifurcated into the LAD and circumflex, no evidence of stenosis. 2. LAD. Normal in size, it gave off to 2 diagonal branches. The proximal LAD had eccentric 80% stenosis. Mid LAD eccentric 40% stenosis. Remainder of LAD was without disease. The diagonal vessels were without disease. 3. Left circumflex artery was normal in size, gave off to 2 obtuse marginal branches. The distal left circumflex had 30% stenosis. 4. Right coronary artery was normal in size, gave off to PDA and 1 posterior lateral branch. The proximal RCA had eccentric 30% stenosis. Remainder of vessel and PDA, posterior lateral branches were without disease. LV gram revealed LVEF of 60%, there was no mitral regurgitation. Ascending aorta and aortic valve were normal. Given 80% proximal LAD stenosis, Dr. Malik performed drug-eluting stent to LAD. Complications none thus far. COURSE OF HOSPITAL STAY: This is a pleasant 73-year-old female patient who follows Dr. Krathik De León of our practice on an outpatient basis who was risk stratified recently due to complaints of dyspnea and exertion. Exercise nuclear stress test revealed 3-mm ST-segment depression with associated complaints of chest pain. The patient was not able to achieve maximum predicted heart rate, thus was converted to regadenoson stress test. Her nuclear image initially reported no areas of ischemia; however, upon further review by Dr. Rasheed Evans, it appeared that there was mild anterior wall ischemia. Thus, she underwent left heart catheterization electively on by Dr. Rasheed Evans. The patient had successful drug- eluting stent placement to proximal LAD, postprocedure was transferred to the ICU where she was monitored overnight. There have been no complications thus far. Vital signs remained stable. This morning's vital signs revealed heart rate 69, respirations 21, oxygenation 94% on room air, blood pressure 120/56. The patient is now on Brilinta 90 mg p.o. b.i.d., Lipitor was increased to 80 mg q.h.s. She offers no complaints. This morning's blood work was reviewed. White count 5.5, hemoglobin 13.7, hematocrit 40, platelets 166. Sodium 140, potassium 3.1, creatinine 0.82. Please note the patient was given 40 mEq of K- Dur x1 this morning. Her right radial access site is intact with strong bounding pulse, nontender to palpation. No evidence of hematoma. Thus, I instructed nurse caring for the patient to allow the patient to ambulate halls; if no ventricular ectopy and patient is stable, tentative plan is discharge home later today. DISCHARGE MEDICATIONS: Include: 1. Aspirin 81 mg p.o. daily. 2. Lasix 20 mg a day. 3. Hydrochlorothiazide 25 mg p.o. daily. 4. Omeprazole 20 mg 2 tablets daily. 5. Ditropan 5 mg p.o. daily. 6. Paxil 20 mg a day. 7. Imitrex 50 mg daily. 8. Norvasc 10 mg a day. 9. Lipitor 80 mg p.o. q.h.s. 10. Propranolol 40 mg p.o. b.i.d. 11. Brilinta 90 mg p.o. b.i.d. 12. Nitroglycerin sublingual tablet as needed q.5-minute p.r.n. 13. Vitamin D 1000 units daily. Outpatient labs to be obtained. Basic metabolic panel next week, fasting lipid panel and hepatic function test in 6 to 8 weeks given up titration of Lipitor therapy to 80 mg p.o. q.h.s. FOLLOWUP APPOINTMENT: The patient is to follow up with primary car repairman, Dr. Karthik De León, on 11/22/18 at 10 a.m. Follow up with PCP, Dr. Sravanthi Oconnor, in 10 to 14 days. DISCHARGE RESTRICTIONS: The patient was instructed to not drive for 48 hours. She was instructed to not lift more than 5 to 10 pounds for 3 to 5 days. She is to keep right radial access site dry, clean, and intact and was instructed not to soak the site, she may shower. She is aware to not take more than aspirin 81 mg a day given it can reduce the efficacy of Brilinta. She understands the importance of dual-antiplatelet therapy to maintain stent patency. Dr. Rasheed Evans agrees with the above assessment and plan. RENETTA LOMAS NP [id number]/CPS #: [id number] Pt seen and examined Cath with LAD stenosis S/P stent to LAD LAbs this am normal VSS cath site stable meds added Briliinta Follow up scheduled with Dr Earle De León [facility]
== END 2018-11-15 15:00 | disposition home or self-care (01) ==
LOC: CHICATH 08:19 → ICU 12:13
PROVIDERS: ADMIT Specialist; ATTEND Specialist
DX: I25.10 Atherosclerotic heart disease of native coronary artery without angina pectoris (principal); R07.9 Chest pain, unspecified; I10 Essential (primary) hypertension; R06.09 Other forms of dyspnea; E78.5 Hyperlipidemia, unspecified; Z79.82 Long term (current) use of aspirin; E87.6 Hypokalemia; Z95.5 Presence of coronary angioplasty implant and graft
CPT/HCPCS: 36415; 80048; 82553; 85025; 85347; 87641; 93005; 93458; 96372; 99156; 99157; A9270-GY; C1725; C1769; C1876; C1887; C9600-LD; G0378; J0583; J1644; J2250; J3010